=== PATIENT | female | born 1995 | race Caucasian/White ===

== ENCOUNTER → 2022-07-15 13:43 | Outpatient (CLI) | payer OTHER, SELFPAY ==
--- NOTE | 2022-07-15 13:48 | DI.US.S_ITS ---
PROCEDURE: US OB <= 14 WEEKS FETUS INDICATIONS: DATING AND VIABILITY OUTSIDE/PRIOR DATING DATA: Last menstrual period (LMP): 05/19/2022. LMP-based estimated date of delivery (SAMMIE): 02/23/2023. First dating scan (date and location): 07/15/2022. Estimated date of delivery (SAMMIE) from first dating scan: 02/22/2023. TECHNIQUE: Real-time scanning was performed of the fetus and maternal pelvic organs, with image documentation. COMPARISON: None. FINDINGS: Embryo: [place]-rump length measures 1.8 cm consistent with 8 weeks 2 days. heart rate is 175 beats per minute. Estimated gestational age is 8 weeks 1 day by LMP and 8 weeks 2 days by ultrasound. A perigestational bleed measuring 2.5 x 1.2 x 1.5 cm is noted on the left. IMPRESSION: 1. Single live intrauterine approximately 8 weeks 2 days. 2. Perigestational bleed measuring 2.5 x 1.2 x 0.5 cm. We strive to produce accurate, complete, and clear reports of imaging services. To assist us in improving patient care, this report was composed using standard report templates and voice recognition software. Therefore, it may contain abnormal punctuation, insertions and/or omissions. Occasional wrong-word or sound-alike substitutions may occur. Though we review the report and make efforts to correct it, we do recommend that the report be read carefully in proper context to recognize any text inaccuracies. Dictated by: Navdeep Mejia M.D. on 07/15/2022 at 16:04 Approved by: Navdeep Mejia M.D. on 07/15/2022 at 16:07
== END ==
PROVIDERS: Referring Provider Obstetrics & Gynecology; Visit Provider Obstetrics & Gynecology
DX: O46.8X1 Other antepartum hemorrhage, first trimester (principal); Z3A.08 8 weeks gestation of pregnancy
CPT/HCPCS: 76801; 76817

== ENCOUNTER 2022-07-16 10:10 | Emergency (ER) | payer OTHER, SELFPAY ==
[2022-07-16 10:13] VITALS: BP 137/87; PULSE 101; RESP 14; TEMP 36.9; O2SAT 99; BMI 31.6
--- NOTE | 2022-07-16 10:31 | ED_ITS ---
HPI - Skin/Abscess/Foreign Bdy General Chief complaint: Skin/Abscess/Foreign Body Stated complaint: Infection in piercing site Time Seen by Provider: 07/16/22 10:28 Source: patient Mode of arrival: Ambulatory Limitations: no limitations History of Present Illness HPI narrative: 27-year-old female who many months ago had both nipples pierced. She recently found out she was . She states that made her nipple start to become very sore so she took the piercings out. This is about 1 week ago. Over the past couple days she has had green drainage from both the nipples and from the piercing sites. Related Data Home Medications Medication Instructions Recorded Confirmed prenat.vits,sherry,[id number] 1 tab PO DAILY 07/08/22 07/08/22 Previous Rx's Medication Instructions Recorded cephalexin 500 mg capsule 500 mg PO QID 5 days #20 caps 07/16/22 Allergies Allergy/AdvReac Type Severity Reaction Status Date / Time No Known Drug Allergies Allergy Verified 07/16/22 10:18 Review of Systems Constitutional Constitutional: Reports system reviewed and no additional complaints, except as documented Integumentary/Breasts Skin/Breast: Reports system reviewed and no additional complaints, except as documented Hematologic/Lymphatic On Anticoagulants: No Allergic/Immunologic Allergic/Immunologic: Reports system reviewed and no additional complaints, except as documented Patient History Medical History Rosacea Surgical History (Updated 07/08/22 @ 08:37 by Concepcion Lassiter RN) [place] teeth extracted Family History (Updated 07/08/22 @ 08:40 by Concepcion Lassiter RN) Mother Breast cancer Father No problems noted. 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 ) special chace needs: No travel history: over 6 months ago seatbelt use: always water heater temp set < 120 deg: Yes working smoke detector in home: Yes fire extinguisher in home: Yes carbon monox detector in home: Yes firearms in home: No do you feel safe at home: Yes Smoking Status: Former smoker Tobacco: How many years used: 2 second hand exposure: No alcohol intake: former (4-6/week prior to ) substance use type: does not use during the past year weight has: increased > 10 lbs well-balanced diet: rarely or never daily servings fruits/ve-1 Type(s) of exercise: walking, regular exercise and weight lifting frequency: 3-4 times per week Smoking Status: Former smoker alcohol intake frequency: holidays/special occasions only Substance Use Type: does not use Exam Initial Vital Signs Initial Vital Signs: Vital Signs Temperature 98.4 F 07/16/22 10:13 Pulse Rate 101 H 07/16/22 10:13 Respiratory Rate 14 07/16/22 10:13 Blood Pressure 137/87 07/16/22 10:13 Pulse Oximetry 99 07/16/22 10:13 Oxygen Delivery Method 07/16/22 10:13 HENVA Head: normal to inspection and normocephalic Chest Other: With standby at bedside breast exam was performed. There is minimal surrounding erythema. No abscess felt underneath each nipple. There is a small amount of drainage from the piercing sites. Skin Other: Skin around nipples is very mildly erythematous. Neuro General: patient alert, patient awake and moves all extremities Extrem General: normal to inspection and capillary refill normal Course Vital Signs Vital signs: Vital Signs - 8 hr 07/16/22 10:13 Temperature 98.4 F Pulse Rate 101 H Respiratory Rate 14 Blood Pressure 137/87 Pulse Oximetry 99 Oxygen Delivery Method Room Air MDM - Skin/Abscess/Foreign Bdy MDM Narrative Medical decision making narrative: Patient is . Will start the patient on antibiotics. They were sent to the pharmacy of her choice. She was given return precautions. No indication for incision and drainage. She expressed understanding and agreement. Discharge Plan Departure Patient Disposition: Home Clinical Impression: Cellulitis Instructions: DI for Cellulitis -- Adult Activity Restrictions/Additional Instructions: A prescription for antibiotics was sent to the [facility]. Please start taking it as directed. They are considered safe antibiotics for . Contact your medical department for follow-up. Return to the emergency department for any new or worsening symptoms. Prescriptions: New cephalexin 500 mg capsule 500 mg PO QID 5 Days Qty: 20 0RF No Action prenat.vits,sherry,[id number] Tablet 1 tab PO DAILY Referrals: Provider,Radha MATTSON [Primary Care Provider] -
== END 2022-07-16 10:48 | disposition home or self-care (01) ==
PROVIDERS: Emergency Provider Emergency Medicine
DX: N61.0 Mastitis without abscess (principal)
CPT/HCPCS: 99281

== ENCOUNTER → 2022-08-14 14:36 | Outpatient (CLI) | payer OTHER, SELFPAY ==
[2022-08-14 15:37] LABS: Add Manual Diff / Slide Review NO; Basophils Absolute Auto 0 /uL (0-100); Basophils Percent Auto 0.3 % (0-2); Eosinophils Absolute Auto 100 /uL (0-450); Eosinophils Percent Auto 0.7 % (2-4); Lymphocytes Absolute Auto 1900 /uL (1100-4500); Lymphocytes Percent Auto 14.2 % (25-40); Mean Corpuscular Hemoglobin 31.2 PG (26-34); Mean Corpuscular Volume 89.1 fL (80-100); Monocytes Absolute Auto 800 /uL (0-900); Monocytes Percent Auto 5.7 % (3-14); Neutrophils Absolute Auto 10600 /uL (1500-7000); Neutrophils Percent Auto 79.1 % (50-75); Platelet Count 242 X10^3/uL (150-400); Red Blood Cell Count 4.49 X10^6/uL (4.0-5.2); Red Cell Distribution Width 12.7 % (11.6-14.8); White Blood Cell Count 13.4 X10^3/uL (4.5-11.0)
[2022-08-14 16:07] LABS: Bilirubin Urine UA NEGATIVE (NEGATIVE); Color Urine UA YELLOW; Glucose Urine UA NEGATIVE (Negative); Ketones Urine UA 1+ (NEGATIVE); Leukocyte Esterase Urine UA 1+ (NEGATIVE); Nitrite Urine UA NEGATIVE (Negative); Occult Blood Urine UA TRACE-LYSED (Negative); Protein Urine UA TRACE (Negative); Specific Gravity Urine UA 1.025 (1.000-1.035); Urobilinogen Urine UA 0.2 E.U./dL (0.2)
[2022-08-14 16:17] LABS: Appearance Urine UA Slightly Cloudy; pH Urine UA 5.5 (4.5-8.0)
[2022-08-14 16:21] LABS: Amorphous Sediment Urine 1+; Bacteria Urine Few (2-10); Calcium Oxalate Crystals Urine Moderate; Mucus Urine 1+ (Negative); RBC Urine 0-1/HPF (0-5/HPF); Squamous Epithelial Cell Urine 5-10 /HPF (0-5/HPF); WBC Urine 1-5/HPF (0-5/HPF)
[2022-08-15 07:36] LABS: Varicella IgG Antibody 1712 index (Immune >165)
[2022-08-17 15:11] LABS: Hepatitis B Surface Antigen NEGATIVE s/c (NEGATIVE); Rubella Antibody IgG 33.4 IU/mL (>15)
[2022-08-17 15:35] LABS: HIV 1 & 2 Ab/Ag 4th Gen Combo NEGATIVE (NEGATIVE); Hep C Virus Ab w/Reflex Quant NEGATIVE s/c (NEGATIVE)
[2022-09-01 13:48] LABS: RPR Screen Reactive
== END ==
PROVIDERS: Referring Provider Obstetrics & Gynecology; Visit Provider Obstetrics & Gynecology
DX: Z34.01 Encounter for supervision of normal first pregnancy, first trimester (principal)
CPT/HCPCS: 36415; 80055; 81003; 81015; 86787; 86803; 86850; 86900; 86901; 87086; 87389

== ENCOUNTER → 2022-09-11 15:11 | Outpatient (CLI) | payer OTHER, SELFPAY ==
[2022-09-15 20:46] LABS: AFP, Serum 37.9 ng/mL (.); Estriol, Free 1.28 ng/mL (.); Inhibin A, Dimeric 152.08 pg/mL (.); Inhibin A, MoM 1.13 (.); Maternal Ethnicity Caucasian (.); Maternal Weight 196 lbs (.); Number of Fetuses No (.); OSBR Risk 1 IN 6301 (.); Results Report (.); Test Results *Screen Negative* (.); hCG, MoM 0.84 (.); hCG, Serum 28303 mIU/mL (.)
== END ==
PROVIDERS: Referring Provider Obstetrics & Gynecology; Visit Provider Obstetrics & Gynecology
DX: Z34.02 Encounter for supervision of normal first pregnancy, second trimester (principal); Z3A.16 16 weeks gestation of pregnancy
CPT/HCPCS: 36415; 82105; 82677; 84702; 86336

== ENCOUNTER → 2022-10-06 14:07 | Outpatient (CLI) | payer OTHER, SELFPAY ==
[2022-10-06 19:49] LABS: Creatinine Urine Random 272.1 mg/dL
[2022-10-06 19:50] LABS: Protein (Total) Urine Random < 5 mg/dL (0-12); Protein Creatinine Ratio Urine 0.01 GRAM/24H
[2022-10-06 20:59] LABS: Urine N gonorrhoeae NOT DETECTED
[2022-10-06 21:02] LABS: Urine Chlamydia NOT DETECTED
== END ==
PROVIDERS: Visit Provider Obstetrics & Gynecology
DX: O12.10 Gestational proteinuria, unspecified trimester (principal); Z11.3 Encounter for screening for infections with a predominantly sexual mode of transmission; Z3A.20 20 weeks gestation of pregnancy
CPT/HCPCS: 82570; 84156; 87491; 87591

== ENCOUNTER → 2022-10-12 07:36 | Outpatient (CLI) | payer OTHER, SELFPAY ==
--- NOTE | 2022-10-12 07:37 | DI.US.S_ITS ---
PROCEDURE: US OB >= 14 WEEKS FETUS INDICATIONS: ANATOMY OUTSIDE/PRIOR DATING DATA: Last menstrual period (LMP): 05/19/2022 LMP-based estimated date of delivery (SAMMIE): 02/23/2023 First dating scan (date and location): 07/15/2022 Estimated date of delivery (SAMMIE) from first dating scan: 02/22/2023 The calculations are made using the working SAMMIE of 02/23/2023 TECHNIQUE: Real-time scanning was performed of the fetus, with image documentation and biometric measurements. Endovaginal scanning: Not performed COMPARISON: [facility], OB <= 14 WEEKS FETUS, 07/15/2022, 14:58. FINDINGS: General: A single living intrauterine gestation is present. Presentation: Breech Placenta: Placental position is right posterior fundal, without previa. Amniotic fluid index: 20.2 cm, normal range is 5-24 cm. Single deepest vertical pocket is 5.8 cm. heart rate: 150 beats per minute. Maternal cervical canal: 5.1 cm long. Normal lower limit is 2.5 cm. biometrics: Biparietal diameter: 5.4 cm, 22 weeks 3 days Head circumference: 19.0 cm, 21 weeks 2 days Abdominal circumference: 18.2 cm, 23 weeks 0 days Femur length: 3.5 cm, 21 weeks 1 day Clinically estimated gestational age: 20 weeks 6 days Composite gestational age from present scan: 22 weeks 0 days Estimated weight and percentile: 478 g, 96th percentile for gestational age Anatomic survey: Neuro: Ventricles are non-dilated at less than 10 mm. Cisterna magna is normal at 3-11 mm. Cerebellum is normal in size and morphology. Nuchal skin fold: Normal at less than 6 mm between 14-21 weeks gestational age. Face: Nose and lips, facial profile are normal. Spine: No evidence for spina bifida. Heart: 4-chambered heart is present, with normal ventricular outflow tracts. Diaphragm: Diaphragm is intact. Stomach: Left-sided stomach is present. Kidneys: Bilateral renal pelviectasis. Anterior-posterior dimension of the renal pelvis measures 4 mm at the right kidney and 7 mm of the left kidney. Cord: 3-vessel cord. Umbilical cord appears to insert along the inferior margin of the placenta, but is not well evaluated due to positioning. Bladder: Normal in size. Extremities: All 4 extremities identified. IMPRESSION: 1. Single live intrauterine . 2. Estimated weight is 478 g, 96th percentile for clinical gestational age and macrosomia is not excluded. 3. Bilateral renal pelviectasis measuring 4 mm on the right and 7 mm on the left. Recommend attention on follow-up exams. 4. Possible marginal insertion of the umbilical cord onto the placenta at the inferior placenta, although evaluation is suboptimal due to positioning. Recommend attention on follow-up exam to exclude marginal cord insertion. We strive to produce accurate, complete, and clear reports of imaging services. To assist us in improving patient care, this report was composed using standard report templates and voice recognition software. Therefore, it may contain abnormal punctuation, insertions and/or omissions. Occasional wrong-word or sound-alike substitutions may occur. Though we review the report and make efforts to correct it, we do recommend that the report be read carefully in proper context to recognize any text inaccuracies Approved by: Oneal Reyes M.D. on 10/12/2022 at 12:18 .
== END ==
PROVIDERS: Referring Provider Obstetrics & Gynecology; Visit Provider Obstetrics & Gynecology
DX: Z34.02 Encounter for supervision of normal first pregnancy, second trimester (principal); Z3A.22 22 weeks gestation of pregnancy
CPT/HCPCS: 76811

== ENCOUNTER → 2022-11-20 11:29 | Outpatient (CLI) | payer OTHER, SELFPAY ==
[2022-11-20 13:03] LABS: Hematocrit 36.2 % (36-46); Hemoglobin 12.4 g/dL (12.0-16.0)
[2022-11-20 13:13] LABS: GTT (PREG) 1 Hour PP 50gm Dose 110 mg/dL (76-139)
== END ==
PROVIDERS: Referring Provider Obstetrics & Gynecology; Visit Provider Obstetrics & Gynecology
DX: Z34.02 Encounter for supervision of normal first pregnancy, second trimester (principal); Z3A.26 26 weeks gestation of pregnancy
CPT/HCPCS: 36415; 82950; 85014; 85018

== ENCOUNTER → 2022-12-01 14:02 | Outpatient (CLI) | payer OTHER, SELFPAY | PROVIDERS: Visit Provider Obstetrics & Gynecology | DX: Z34.03 Encounter for supervision of normal first pregnancy, third trimester (principal); R31.9 Hematuria, unspecified | CPT/HCPCS: 87086 ==

== ENCOUNTER → 2022-12-04 14:27 | Outpatient (CLI) | payer OTHER, SELFPAY | PROVIDERS: Referring Provider Obstetrics & Gynecology; Visit Provider Obstetrics & Gynecology | DX: N39.0 Urinary tract infection, site not specified (principal) | CPT/HCPCS: 87086 ==

== ENCOUNTER → 2022-12-08 15:09 | Outpatient (CLI) | payer OTHER, SELFPAY ==
--- NOTE | 2022-12-08 15:10 | DI.US.S_ITS ---
PROCEDURE: US OB FOLLOW UP INDICATIONS: LARGE FOR GESTATIONAL AGE. PLACENTAL CORD INSERTION F/U. OUTSIDE/PRIOR DATING DATA: Last menstrual period (LMP): 05/19/2022 LMP-based estimated date of delivery (SAMMIE): 02/23/2023. First dating scan (date and location): 07/15/2022. Estimated date of delivery (SAMMIE) from first dating scan: 02/22/2023. TECHNIQUE: Real-time scanning was performed of the fetus, with image documentation and biometric measurements. COMPARISON: [facility], , OB >= 14 WEEKS FETUS, 10/12/2022, 7:54. FINDINGS: General: A single living intrauterine gestation is present. Presentation: Vertex. Placenta: Placental position is right fundal posterior , without previa. Amniotic fluid index: 24.9 cm, normal range is 5-24 cm. Single deepest vertical pocket is 9.0 cm cm. heart rate: Heart tones seen with real-time exam; however M-mode tracing was unable to be obtained secondary to movement. Maternal cervical canal: 6.1 cm cm long. Normal lower limit is 2.5 cm. biometrics: Biparietal diameter: 33 weeks Head circumference: 31 weeks 4 days Abdominal circumference: 32 weeks Femur length: 29 weeks 6 days Clinically estimated gestational age: 29 weeks Composite gestational age from present scan: 31 weeks 4 days Estimated weight and percentile: 1753 g; 98th percentile Renal pyelectasis with the right kidney reds ring 6.3 mm and the left renal pelvis measuring 7.2 mm. Marginal placenta previa at the inferior margin of the placenta. Other: Not applicable. IMPRESSION: 1. Single living IUP redemonstrated and interval growth is greater than expected with estimated weight at the 98th percentile. Developing macrosomia cannot be excluded and close clinical correlation and follow-up is recommended. 2. Amniotic fluid index greater than the 95th percentile for age. 3. Marginal placenta previa. 4. Persistent bilateral renal pyelectasis. Continued sonographic surveillance recommended. We strive to produce accurate, complete, and clear reports of imaging services. To assist us in improving patient care, this report was composed using standard report templates and voice recognition software. Therefore, it may contain abnormal punctuation, insertions and/or omissions. Occasional wrong-word or sound-alike substitutions may occur. Though we review the report and make efforts to correct it, we do recommend that the report be read carefully in proper context to recognize any text inaccuracies. Dictated by: James WILLIAMSON Interpreted: Oneal Frost MD on 12/09/2022 at 16:43 Transcribed by: GABRIEL on 12/09/2022 at 16:49 Approved by: Oneal Frost M.D. on 12/09/2022 at 17:45
== END ==
PROVIDERS: Referring Provider Obstetrics & Gynecology; Visit Provider Obstetrics & Gynecology
DX: O36.63X0 Maternal care for excessive fetal growth, third trimester, not applicable or unspecified (principal); O35.EXX0 Maternal care for other (suspected) fetal abnormality and damage, fetal genitourinary anomalies, not applicable or unspecified; Z3A.31 31 weeks gestation of pregnancy; O43.193 Other malformation of placenta, third trimester
CPT/HCPCS: 76816

== ENCOUNTER → 2022-12-30 15:17 | Outpatient (CLI) | payer OTHER, SELFPAY ==
[2022-12-30 19:01] LABS: Urine N gonorrhoeae NOT DETECTED
[2022-12-30 19:02] LABS: Urine Chlamydia NOT DETECTED
== END ==
PROVIDERS: Visit Provider Obstetrics & Gynecology
DX: O26.899 Other specified pregnancy related conditions, unspecified trimester (principal); N89.8 Other specified noninflammatory disorders of vagina; Z11.3 Encounter for screening for infections with a predominantly sexual mode of transmission
CPT/HCPCS: 87491; 87591

== ENCOUNTER → 2022-12-30 15:32 | Outpatient (CLI) | payer OTHER, SELFPAY ==
[2022-12-30 16:08] LABS: Add Manual Diff / Slide Review NO; Basophils Absolute Auto 100 /uL (0-100); Basophils Percent Auto 0.4 % (0-2); Eosinophils Absolute Auto 100 /uL (0-450); Eosinophils Percent Auto 0.5 % (2-4); Hemoglobin 12.4 g/dL (12.0-16.0); Lymphocytes Absolute Auto 1900 /uL (1100-4500); Lymphocytes Percent Auto 12.3 % (25-40); Mean Corpuscular HGB Conc 34.4 % (30-36); Mean Corpuscular Hemoglobin 30.3 PG (26-34); Mean Corpuscular Volume 88.3 fL (80-100); Monocytes Absolute Auto 900 /uL (0-900); Neutrophils Absolute Auto 12400 /uL (1500-7000); Neutrophils Percent Auto 80.8 % (50-75); Platelet Count 197 X10^3/uL (150-400); Red Blood Cell Count 4.08 X10^6/uL (4.0-5.2); Red Cell Distribution Width 13.7 % (11.6-14.8); White Blood Cell Count 15.3 X10^3/uL (4.5-11.0)
[2022-12-30 16:18] LABS: Alanine Aminotransferase 20 IU/L (<35); Albumin 3.8 g/dL (3.5-5.0); Albumin Globulin Ratio 1.3 (1.0-2.8); Alkaline Phosphatase 93 U/L (38-126); Aspartate Aminotransferase 23 IU/L (14-36); Bilirubin Total 0.2 mg/dL (0.2-1.3); Blood Urea Nitrogen 12 mg/dL (7-17); Calcium 9.8 mg/dL (8.4-10.2); Carbon Dioxide 24 mmol/L (22-32); Chloride 103 mmol/L (98-107); Estimated Glomerular Filt Rate > 60 mL/min (>60); Globulin 2.9 g/dL (1.7-4.1); Glucose 108 mg/dL (70-100); HEMOLYSIS 17 (0-50); Sodium 134 mmol/L (137-145); Total Protein 6.7 g/dL (6.3-8.2); Uric Acid 4.7 mg/dL (2.5-6.2)
[2022-12-30 18:03] LABS: Creatinine Urine Random 128.4 mg/dL; Protein (Total) Urine Random 11 mg/dL (0-12); Protein Creatinine Ratio Urine 0.08 GRAM/24H
== END ==
PROVIDERS: Referring Provider Obstetrics & Gynecology; Visit Provider Obstetrics & Gynecology
DX: O13.3 Gestational [pregnancy-induced] hypertension without significant proteinuria, third trimester (principal)
CPT/HCPCS: 36415; 80053; 82570; 84156; 84550; 85025

== ENCOUNTER 2022-12-30 15:57 | Outpatient (CLI) | payer OTHER, SELFPAY | END 2022-12-30 16:35 | disposition home or self-care (01) | LOC: LABOR 16:30 → OB 12-31 16:55 | PROVIDERS: PCP Student in an Organized Health Care Education/Training Program; Referring Provider Obstetrics & Gynecology; Visit Provider Obstetrics & Gynecology | DX: O36.8130 Decreased fetal movements, third trimester, not applicable or unspecified (principal); O10.913 Unspecified pre-existing hypertension complicating pregnancy, third trimester; Z3A.32 32 weeks gestation of pregnancy; O26.899 Other specified pregnancy related conditions, unspecified trimester; N89.8 Other specified noninflammatory disorders of vagina; Z11.3 Encounter for screening for infections with a predominantly sexual mode of transmission; O13.3 Gestational [pregnancy-induced] hypertension without significant proteinuria, third trimester | CPT/HCPCS: 36415; 59025; 80053; 82570; 84156; 84550; 85025; 87491; 87591; G0378; G0379 ==

== ENCOUNTER 2023-01-20 10:44 | Observation (INO) | payer OTHER, SELFPAY ==
[2023-01-20 11:42] LABS: Appearance Urine UA CLEAR; Bilirubin Urine UA NEGATIVE (NEGATIVE); Color Urine UA YELLOW; Glucose Urine UA NEGATIVE (Negative); Ketones Urine UA TRACE (NEGATIVE); Leukocyte Esterase Urine UA 1+ (NEGATIVE); Nitrite Urine UA NEGATIVE (Negative); Occult Blood Urine UA NEGATIVE (Negative); Protein Urine UA NEGATIVE (Negative); Urobilinogen Urine UA 0.2 E.U./dL (0.2); pH Urine UA 6.5 (4.5-8.0)
[2023-01-20 11:51] LABS: Bacteria Urine None Seen; Culture Indicated Urine Specimen Cultured; RBC Urine None Seen (0-5/HPF); Urine Comments Microscopic Normal; WBC Urine None Seen (0-5/HPF)
--- NOTE | 2023-01-20 11:56 | DI.US.S_ITS ---
PROCEDURE: US OB BIOPHYSICAL PROFILE INDICATIONS: 35 weeks, cramping OUTSIDE/PRIOR DATING DATA: Last menstrual period (LMP): May 19, 2022. LMP-based estimated date of delivery (SAMMIE): February 23, 2023. First dating scan (date and location): July 15, 2022. Estimated date of delivery (SAMMIE) from first dating scan: February 22, 2023. TECHNIQUE: Real-time scanning was performed of the fetus, with image documentation and biometric measurements. Biophysical profile was also obtained. Endovaginal scanning: Not performed COMPARISON: None. FINDINGS: General: A single living intrauterine gestation is present. Presentation: Vertex. Placenta: Placental position is fundal/posterior, without previa. Lower placental edge 2 cm or less from internal cervical os qualifies as low lying placenta. Amniotic fluid index: 12.7 cm, normal range is 5-24 cm. Single deepest vertical pocket is 4.3 cm. heart rate: 132 beats per minute. Maternal cervical canal: 3.9 cm long. Normal lower limit is 2.5 cm. Clinically estimated gestational age: 35 weeks, 1 day Biophysical profile: Tone: 2 points. Movement: 2 points. Respiration: 2 points. Largest pocket of fluid: 2 points. IMPRESSION: 8 biophysical profile. We strive to produce accurate, complete, and clear reports of imaging services. To assist us in improving patient care, this report was composed using standard report templates and voice recognition software. Therefore, it may contain abnormal punctuation, insertions and/or omissions. Occasional wrong-word or sound-alike substitutions may occur. Though we review the report and make efforts to correct it, we do recommend that the report be read carefully in proper context to recognize any text inaccuracies. Dictated by: Celsa Benitez M.D. on 01/20/2023 at 14:05 Approved by: Celsa Benitez M.D. on 01/20/2023 at 14:27
--- NOTE | 2023-01-20 12:47 | PM.OBTRLD ---
Visit Information Visit Information Date of evaluation: 01/20/23 Primary OB Provider: Aguila Yoo Reason for Evaluation: Yes non-stress test Comments/Additional reasons for admission: Decreased FM, contractions PFSH Medical History (Updated 01/20/23 @ 12:48 by Aguila Yoo MD) Rosacea (~1994) Surgical History (Updated 08/14/22 @ 18:58 by Claribel Acosta) Anesthesia [place] teeth extracted (~2010) Family History (Updated 08/14/22 @ 19:00 by Claribel Acosta) Mother Breast cancer Father History of blood clots Grandfather Prostate cancer Testicular cancer Grandmother Hyperlipidemia Hypertension Grandmother Diabetes mellitus Social History marital status: number of children: 0 household members: none lives independently: Yes housing: apartment pets and animals: No education level: high school 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 travel history: over 6 months ago seatbelt use: always water heater temp set < 120 deg: Yes working smoke detector in home: Yes fire extinguisher in home: Yes carbon monox detector in home: Yes firearms in home: No do you feel safe at home: Yes Smoking Status: Former smoker Tobacco: How many years used: 2 second hand exposure: No alcohol intake: former (4-6/week prior to ) substance use type: does not use during the past year weight has: increased > 10 lbs well-balanced diet: rarely or never daily servings fruits/ve-1 Type(s) of exercise: walking, regular exercise and weight lifting frequency: 3-4 times per week Objective Labs Labs: Laboratory Results - last 24 hr 01/20/23 11:25 Urine Color Yellow Urine Appearance Clear Urine pH 6.5 Ur Specific [place] 1.020 Urine Protein Negative Urine Glucose (UA) Negative Urine Ketones Trace H Urine Occult Blood Negative Urine Nitrate Negative Urine Bilirubin Negative Urine Urobilinogen 0.2 Ur Leukocyte Esterase 1+ H Urine RBC None seen Urine WBC None seen Urine Bacteria None seen Ur Culture Indicated? Specimen cultured Micro UA Comment Microscopic normal Evaluation Evaluation Baseline heart rate: 130 Variability: Moderate (11-25) monitor accelerations: Present Monitor Decelerations: Absent Contraction Frequency (minutes): 4 Uterine Contraction Intensity: Mild Category of Tracing: Reactive Status: Category l Cervical dilation (cm): 1 Cervical effacement (%): 50 station: -3 Comments: BPP /, BEAN NL. Diagnosis, Plan/Disposition Final Diagnosis (1) Uterine irritability: Status: Acute (2) Decreased movement affecting management of mother, antepartum: Status: Acute Plan/Disposition Plan: Home with precautions. BR and adequate hydration, kick counts. Follow-up BELLA scheduled for next week (01/29/2023). OB Disposition: home
== END 2023-01-20 12:56 | disposition home or self-care (01) ==
PROVIDERS: Admitting Provider Obstetrics & Gynecology; PCP Student in an Organized Health Care Education/Training Program; Referring Provider Obstetrics & Gynecology; Visit Provider Obstetrics & Gynecology
DX: O47.03 False labor before 37 completed weeks of gestation, third trimester (principal); O36.8130 Decreased fetal movements, third trimester, not applicable or unspecified; Z3A.35 35 weeks gestation of pregnancy
CPT/HCPCS: 59025; 76819; 81001; 87086; G0378; G0379

== ENCOUNTER → 2023-01-29 14:42 | Outpatient (CLI) | payer OTHER, SELFPAY ==
[2023-01-30 12:34] LABS: Strep Grp B PCR NEG for Grp B Strep
== END ==
PROVIDERS: PCP Student in an Organized Health Care Education/Training Program; Visit Provider Obstetrics & Gynecology
DX: Z34.03 Encounter for supervision of normal first pregnancy, third trimester (principal); Z3A.36 36 weeks gestation of pregnancy
CPT/HCPCS: 87653

== ENCOUNTER → 2023-01-29 15:08 | Outpatient (CLI) | payer OTHER, SELFPAY ==
[2023-01-29 15:29] LABS: Add Manual Diff / Slide Review NO; Basophils Absolute Auto 100 /uL (0-100); Basophils Percent Auto 0.4 % (0-2); Eosinophils Absolute Auto 100 /uL (0-450); Eosinophils Percent Auto 0.6 % (2-4); Hematocrit 35.5 % (36-46); Hemoglobin 12.3 g/dL (12.0-16.0); Lymphocytes Absolute Auto 2100 /uL (1100-4500); Mean Corpuscular HGB Conc 34.6 % (30-36); Mean Corpuscular Hemoglobin 30.3 PG (26-34); Mean Corpuscular Volume 87.6 fL (80-100); Monocytes Absolute Auto 1000 /uL (0-900); Monocytes Percent Auto 6.4 % (3-14); Neutrophils Absolute Auto 12600 /uL (1500-7000); Neutrophils Percent Auto 79.6 % (50-75); Platelet Count 209 X10^3/uL (150-400); Red Blood Cell Count 4.05 X10^6/uL (4.0-5.2); Red Cell Distribution Width 14.1 % (11.6-14.8); White Blood Cell Count 15.9 X10^3/uL (4.5-11.0)
[2023-01-29 15:35] LABS: Alanine Aminotransferase 28 IU/L (<35); Albumin Globulin Ratio 1.3 (1.0-2.8); Alkaline Phosphatase 120 U/L (38-126); Aspartate Aminotransferase 25 IU/L (14-36); BUN Creatinine Ratio 8.5 (6-22); Bilirubin Total 0.4 mg/dL (0.2-1.3); Blood Urea Nitrogen 6 mg/dL (7-17); Calcium 9.5 mg/dL (8.4-10.2); Carbon Dioxide 20 mmol/L (22-32); Chloride 105 mmol/L (98-107); Estimated Glomerular Filt Rate > 60 mL/min (>60); Globulin 3.1 g/dL (1.7-4.1); Glucose 106 mg/dL (70-100); HEMOLYSIS < 15 (0-50); Potassium 3.7 mmol/L (3.4-5.1); Sodium 134 mmol/L (137-145); Total Protein 7.1 g/dL (6.3-8.2)
== END ==
PROVIDERS: Referring Provider Obstetrics & Gynecology; Visit Provider Obstetrics & Gynecology
DX: O13.3 Gestational [pregnancy-induced] hypertension without significant proteinuria, third trimester (principal)
CPT/HCPCS: 36415; 80053; 85025

== ENCOUNTER 2023-01-29 15:10 | Outpatient (CLI) | payer OTHER, SELFPAY | END 2023-01-29 16:15 | disposition home or self-care (01) | LOC: OB 02-22 13:02 | PROVIDERS: Referring Provider Obstetrics & Gynecology; Visit Provider Obstetrics & Gynecology | DX: O10.913 Unspecified pre-existing hypertension complicating pregnancy, third trimester (principal); Z3A.36 36 weeks gestation of pregnancy; Z34.03 Encounter for supervision of normal first pregnancy, third trimester; O13.3 Gestational [pregnancy-induced] hypertension without significant proteinuria, third trimester | CPT/HCPCS: 36415; 59025; 80053; 85025; 87653; G0378; G0379 ==

== ENCOUNTER 2023-02-03 10:04 | Outpatient (CLI) | payer OTHER, SELFPAY ==
--- NOTE | 2023-02-03 11:43 | P.TNLD_ITS ---
Visit Information Visit Information Date of evaluation: 02/03/23 Primary OB Provider: Aguila Yoo Reason for Evaluation: Yes non-stress test Comments/Additional reasons for admission: Gestational HTN PFSH Medical History (Updated 02/03/23 @ 10:07 by Aguila Yoo MD) Rosacea (~1994) Surgical History (Updated 08/14/22 @ 18:58 by Claribel Acosta) Anesthesia [place] teeth extracted (~2010) Family History (Updated 08/14/22 @ 19:00 by Claribel Acosta) Mother Breast cancer Father History of blood clots Grandfather Prostate cancer Testicular cancer Grandmother Hyperlipidemia Hypertension Grandmother Diabetes mellitus Social History marital status: number of children: 0 household members: none lives independently: Yes housing: apartment pets and animals: No education level: high school 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 travel history: over 6 months ago seatbelt use: always water heater temp set < 120 deg: Yes working smoke detector in home: Yes fire extinguisher in home: Yes carbon monox detector in home: Yes firearms in home: No do you feel safe at home: Yes Smoking Status: Former smoker Tobacco: How many years used: 2 second hand exposure: No alcohol intake: former (4-6/week prior to ) substance use type: does not use during the past year weight has: increased > 10 lbs well-balanced diet: rarely or never daily servings fruits/ve-1 Type(s) of exercise: walking, regular exercise and weight lifting frequency: 3-4 times per week Evaluation Evaluation Baseline heart rate: 145 Variability: Moderate (11-25) monitor accelerations: Present Monitor Decelerations: Absent Category of Tracing: Reactive Diagnosis, Plan/Disposition Final Diagnosis (1) Gestational hypertension w/o significant proteinuria in 3rd trimester: Status: Acute (2) LGA (large for gestational age) fetus affecting management of mother: Status: Acute Plan/Disposition Plan: Home with instructions Primary section as scheduled OB Disposition: home
== END 2023-02-03 11:35 | disposition home or self-care (01) ==
LOC: LABOR 10:56 → OB 02-05 14:26
PROVIDERS: Referring Provider Obstetrics & Gynecology; Visit Provider Obstetrics & Gynecology
DX: O13.3 Gestational [pregnancy-induced] hypertension without significant proteinuria, third trimester (principal); Z3A.37 37 weeks gestation of pregnancy
CPT/HCPCS: 59025; 76815; G0378; G0379

== ENCOUNTER 2023-02-08 05:33 | Inpatient (IN) | payer OTHER, SELFPAY ==
--- NOTE | 2023-02-07 21:21 | P.HPOB_ITS ---
OB HPI Date/Time Date of admission: 02/08/23 Date Patient Seen: 02/07/23 Time Patient Seen: 07:00 History of Present Condition Chief complaint: Elective Primary : 1 Para: 0 Estimated Date of Delivery: 02/22/23 Estimated Gestational Age (weeks): 38+0 Narrative: Cecile Lares is a 27 year old primigravida with gestational hypertension requiring labetalol 300 mg BID for control who is admitted for delivery. Her testing has been reassuring, her dating is firm, and she's had appropriate milestones throughout the pregnacy. The has also been LGA throughout the and the oatient has been concerned throughout the re: the size of the baby, the risks of labor to her and her , as well as the possibility that after unsuccessful labor she may wind up having a section anyway. The patient is aware that her most recent biometric imaging 12/08/2022 showed her baby is at the 98th %'tile insofar as EFW but she declines further growth imaging for confirmation prior to delivery as she does not wish to consider vaginal . After consideration of all options and with full understanding of potential risks, benefits, and complications associated with the patient is form in her desire rto [[id number] with elective proimary cesrean section and she is admitted this morning for delivery by cesrean section. GBS is negative. Indications Operative indications ( section): elective History of Present care: good care Dating criteria: LMP confirmed by 1st trimester US Ultrasounds: normal 1st trimester US and normal mid trimester US Abnormal ultrasound findings: Macrosomia Obstetrical complications: gestational hypertension Medical complications: none Preadmission Labs Blood type: O (+) positive -: Antibody screen: negative, GBS status: negative, HBsAG: negative, HIV: negative and RPR/VDLR: negative -: Chlamydia screen: not detected and Gonorrhea screen: not detected -: Rubella: immune and Varicella: immune HCT: 35.5 HCAB: negative PAP: Normal Quad screen: Normal 1 hr GTT: 110 Prior (ies) History: G1 Evaluation Evaluation Baseline heart rate: 135 Variability: Moderate (11-25) monitor accelerations: Present Monitor Decelerations: Absent Category of Tracing: Reactive Status: Category l [facility] Medical History (Updated 02/03/23 @ 10:07 by Aguila Yoo MD) Rosacea (~1994) Surgical History (Updated 08/14/22 @ 18:58 by Claribel Acosta) Anesthesia [place] teeth extracted (~2010) Family History (Updated 08/14/22 @ 19:00 by Claribel Acosta) Mother Breast cancer Father History of blood clots Grandfather Prostate cancer Testicular cancer Grandmother Hyperlipidemia Hypertension Grandmother Diabetes mellitus Social History marital status: number of children: 0 household members: none lives independently: Yes housing: apartment pets and animals: No education level: high school 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 ) special chace needs: No travel history: over 6 months ago seatbelt use: always water heater temp set < 120 deg: Yes working smoke detector in home: Yes fire extinguisher in home: Yes carbon monox detector in home: Yes firearms in home: No do you feel safe at home: Yes Smoking Status: Former smoker Tobacco: How many years used: 2 second hand exposure: No alcohol intake: former (4-6/week prior to ) substance use type: does not use during the past year weight has: increased > 10 lbs well-balanced diet: rarely or never daily servings fruits/ve-1 Type(s) of exercise: walking, regular exercise and weight lifting frequency: 3-4 times per week Meds Home Medications and Allergies Home Medications Medication Instructions Recorded Confirmed Type prenat.vits,sherry,osd-[id number]-pyjho 1 tab PO DAILY 07/08/22 02/03/23 History fluconazole 150 mg tablet 150 mg PO Q3D 2 doses #2 tabs 08/15/22 02/03/23 Rx (Diflucan) fluconazole 150 mg tablet 150 mg PO Q3D 2 doses #2 tabs 11/11/22 02/03/23 Rx (Diflucan) labetalol 300 mg tablet 300 mg PO BID #60 tabs 12/30/22 02/03/23 Rx metronidazole 0.75 % (37.5 mg/5 1 appful vaginal BEDTIME 5 days 12/30/22 02/03/23 Rx gram) vaginal gel #70 grams Allergies Allergy/AdvReac Type Severity Reaction Status Date / Time No Known Drug Allergies Allergy Verified 02/03/23 09:48 Review of Systems Review of Systems Narrative: Problem-specific ROS positives included in HPI OB Exam Vital signs Blood Pressure: 128/84 Pulse Rate: 90 Respiratory Rate: 17 Temperature: 97.9 F HENMT Head: normal to inspection and normocephalic Eyes General: appearance normal, both eyes and all related structures Resp Effort & Inspection: normal respiratory effort and able to speak in complete sentences Auscultation: clear to auscultation bilaterally Cardio Rate: regular rate Rhythm: regular rhythm Heart Sounds: S1 normal, S2 normal and no murmurs Extremities Lower extremity: Yes normal to inspection GI Inspection: normal to inspection Palpation: Yes soft and Yes no hepatosplenomegaly Uterus Location (Fundal Height): 38 Presentation: vertex Estimated Weight (lbs): 8 Objective Labs 02/08/23 06:00 Assessment and Plan Assessment and Plan Assessment and Plan narrative: ASSESSMENT 1. Intrauterine , 38+0 weeks EGA 2. Gestational HTN 3. Request for elective sterilization PLAN 1. Admit for primary delivery 2. See admission orders
[2023-02-08 06:46] LABS: Add Manual Diff / Slide Review NO; Basophils Absolute Auto 100 /uL (0-100); Basophils Percent Auto 0.8 % (0-2); Eosinophils Absolute Auto 100 /uL (0-450); Eosinophils Percent Auto 0.6 % (2-4); Hematocrit 37.3 % (36-46); Hemoglobin 12.8 g/dL (12.0-16.0); Lymphocytes Absolute Auto 2400 /uL (1100-4500); Lymphocytes Percent Auto 14.5 % (25-40); Mean Corpuscular HGB Conc 34.2 % (30-36); Mean Corpuscular Hemoglobin 29.9 PG (26-34); Mean Corpuscular Volume 87.6 fL (80-100); Monocytes Absolute Auto 1200 /uL (0-900); Monocytes Percent Auto 7.2 % (3-14); Neutrophils Absolute Auto 12600 /uL (1500-7000); Neutrophils Percent Auto 76.9 % (50-75); Platelet Count 208 X10^3/uL (150-400); Red Blood Cell Count 4.26 X10^6/uL (4.0-5.2); Red Cell Distribution Width 14.4 % (11.6-14.8); White Blood Cell Count 16.4 X10^3/uL (4.5-11.0)
[2023-02-08 07:37] VITALS: BP 128/84; PULSE 90; RESP 17; TEMP 36.6
--- NOTE | 2023-02-08 07:37 | PM.PREOP ---
Pre-operative Note COVID-19 COVID-19 status: Not tested Criteria for continued procedure: Non-surgical alternatives not available or appropriate per current SOC Interval Note History & Physical reviewed/Exam performed by Physician: Yes Changes to H&P: No
[2023-02-08] MEDS: CEFAZOLIN 2 GM/100 ML PREMIX 100 ML IV (08:10)
--- NOTE | 2023-02-08 08:14 | SUR.OPER ---
Supine on Padded OR bed, head on pillow, safety belt at thigh, arms secured on padded arm boards at <90 degrees abduction. Bump under right buttock. Legs uncrossed with pillow under knees, gel pad to heels, tape over blanket to lower legs.
[2023-02-08] MEDS: LACTATED RINGERS 1,000 ML 999 ML IV (08:25)
--- NOTE | 2023-02-08 08:28 | SUR.OPER ---
FHR 144. Viable baby boy born at 0821. Cord blood and placenta given to OB RN.
[2023-02-08 09:18] VITALS: BP 114/74; PULSE 85; RESP 10; TEMP 35.8; O2SAT 100
[2023-02-08 09:22] VITALS: BP 118/72; PULSE 86; RESP 18; O2SAT 100
[2023-02-08] MEDS: OXYCODONE/ACETAMINOPHEN 5/325 TABLET 1 TAB PO (09:27)
--- NOTE | 2023-02-08 09:30 | PM.OBCS.1 ---
Operative Date/Time/Diagnoses Date of procedure: 02/08/23 Time of procedure: 08:00 Pre-op diagnosis: Intrauterine gestation, west, 38+0 weeks EGA Gestational hypertension Request for elective primary cesareean section Post-op diagnosis: same Procedure & Clinicians Procedure: Primary section, low transverse cervical Same procedure as scheduled: Yes Indications: Cecile Lares is a 27 year old primigravida with gestational hypertension requiring labetalol 300 mg BID for control who is admitted for delivery.? Her testing has been reassuring, her dating is firm, and she's had appropriate milestones throughout the pregnacy.? The has also been LGA throughout the and the patient has been concerned throughout the re: the size of the baby, the risks of labor to her and her , as well as the possibility that after unsuccessful labor she may wind up having a section anyway.? The patient is aware that her most recent biometric imaging 12/08/2022 showed her baby is at the 98th %'tile insofar as EFW but she declines further growth imaging for confirmation prior to delivery as she does not wish to consider vaginal .? After consideration of all options and with full understanding of potential risks, benefits, and complications associated with the patient is form in her desire to proceed with elective primary section and she is admitted this morning for delivery by section.? GBS is negative. Surgeon: Aguila Yoo Evidence Technician: Pilar Best Reason for Evidence Technician: Evidence Technician required for the safe, effective, and timely completion of this surgery. Anesthesia Type: Spinal Operative Notes Findings: Viable male BW 3925 gms, Apgars 4/6/8, delivered from the vertex presentation. Normal gravid anatomy. Closure Type: primary Specimen(s): cord blood and cord pH Intraoperative meds administered: Ketorolac and Pitocin Applied: Catheter Estimated Blood Loss (mL): 600 Blood products transfused: none Procedure in detail: With her informed written consent, the patient was taken to the operating room and placed in the supine position for an elective primary section procedure, for the indication(s) above. The abdomen was prepped and draped in the usual manner for section and a pre-surgical timeout was taken per [facility] OR protocol. Once effective anesthesia was confirmed, a 15 cm transverse Pfannenstiel incision was made in the skin and taken down through the subcutaneous tissues to the deep fascia. The deep fascia was incised transversely, the rectus abdominal eyes bluntly and sharply, and the peritoneal cavity entered without difficulty. The lower uterine segment was visualized and the position/presentation palpated. A transverse incision at or above the vesicouterine reflection was made with Metzenbaum scissors and transverse hysterotomy performed near the midline. Amniotomy revealed clear fluid. The incision was extended bilaterally with digital traction and the was delivered with vacuum assistance from the vertex presentation. The infant was vigorous and cord clamping delayed for 60 seconds. The placenta was delivered intact using gentle cord traction and fundal massage.The uterine cavity was then cleared of any clot/debris first with a sloppy wet lap tape followed by a dry lap tape. Ring forceps were then applied to the angles and the midline of the incised SHILA. A primary closure of the uterus was then accomplished with #1 CCGS in a running interlocking stitch followed by a 2nd layer of #1 CCGS in a running interlocking imbricating stitch. One additional figure of eight suture was required to achieve complete hemostasis. Once pelvic hemostasis was assured, the bladder flap and anterior peritoneum were closed with a running 2-0 Vicryl suture and the fascia closed with #1 Vicryl in a running stitch initiated at both angles and tying separately near the midline. The subcutaneous tissues were reapproximated with 2-0 plain catgut suture using inverted interrupted stitches. The skin edges were then brought together with 4-0 Monocryl in a subcuticular closure and the incision was reinforced with 1 Steri-Strips. An appropriate compression dressing was applied and the patient transferred to PACU for recovery and subsequent transfer to the Center for recuperation. Complications: none [place] Baby 1: Gender: Male Presentation: vertex Position: Left Occiput Anterior Placental Delivery Description: Spontaneous Cord Vessel Description: 3 Vessels score (1 min): 4 score (5 min): 6 score (10 min): 8 weight: 8 lb 10.45 oz Post-operative Condition: stable Disposition: PACU Aftercare: routine postop
[2023-02-08 09:31] VITALS: BP 125/72; PULSE 87; RESP 18; O2SAT 100
[2023-02-08 09:37] VITALS: BP 111/65; PULSE 76; RESP 18; O2SAT 100
[2023-02-08] MEDS: TRANEXAMIC ACID 1,000 MG in SODIUM CHLORIDE 0.9% 100 ML 200 MG IV (11:06)
[2023-02-08] MEDS: METHYLERGONOVINE 0.2 MG/ML VIAL IM (11:07)
[2023-02-08 12:22] LABS: Add Manual Diff / Slide Review NO; Basophils Absolute Auto 100 /uL (0-100); Basophils Percent Auto 0.4 % (0-2); Eosinophils Absolute Auto 100 /uL (0-450); Eosinophils Percent Auto 0.2 % (2-4); Hematocrit 33.3 % (36-46); Hemoglobin 11.4 g/dL (12.0-16.0); Lymphocytes Absolute Auto 1700 /uL (1100-4500); Lymphocytes Percent Auto 6.7 % (25-40); Mean Corpuscular HGB Conc 34.2 % (30-36); Mean Corpuscular Volume 87.6 fL (80-100); Monocytes Absolute Auto 1300 /uL (0-900); Monocytes Percent Auto 5.1 % (3-14); Neutrophils Absolute Auto 21600 /uL (1500-7000); Neutrophils Percent Auto 87.6 % (50-75); Platelet Count 202 X10^3/uL (150-400); Red Cell Distribution Width 14.2 % (11.6-14.8); White Blood Cell Count 24.7 X10^3/uL (4.5-11.0)
[2023-02-08] MEDS: KETOROLAC 30 MG/ML VIAL IV ×2 (15:28→21:25)
[2023-02-08] MEDS: ACETAMINOPHEN 325 MG TABLET 650 MG PO (18:57)
[2023-02-08 21:23] VITALS: BP 108/78; PULSE 87
[2023-02-08] MEDS: LABETALOL 100 MG TABLET 300 MG PO (21:23)
[2023-02-08] MEDS: diphenhydrAMINE 50 MG/ML VIAL 25 MG IV (21:30)
[2023-02-09 00:10] VITALS: BP 93/63; PULSE 79
[2023-02-09] MEDS: ACETAMINOPHEN 325 MG TABLET 650 MG PO ×4 (01:48→21:41)
[2023-02-09] MEDS: OXYCODONE IR 5 MG TABLET PO ×4 (01:48→19:55)
[2023-02-09] MEDS: KETOROLAC 30 MG/ML VIAL IV (03:39)
[2023-02-09 06:08] LABS: Add Manual Diff / Slide Review NO; Basophils Absolute Auto 100 /uL (0-100); Basophils Percent Auto 0.3 % (0-2); Eosinophils Absolute Auto 200 /uL (0-450); Hematocrit 30.1 % (36-46); Hemoglobin 10.3 g/dL (12.0-16.0); Lymphocytes Absolute Auto 1800 /uL (1100-4500); Lymphocytes Percent Auto 10.1 % (25-40); Mean Corpuscular HGB Conc 34.1 % (30-36); Mean Corpuscular Hemoglobin 30.1 PG (26-34); Mean Corpuscular Volume 88.3 fL (80-100); Monocytes Absolute Auto 1000 /uL (0-900); Monocytes Percent Auto 5.8 % (3-14); Neutrophils Absolute Auto 15000 /uL (1500-7000); Neutrophils Percent Auto 82.8 % (50-75); Platelet Count 224 X10^3/uL (150-400); Red Cell Distribution Width 14.5 % (11.6-14.8); White Blood Cell Count 18.1 X10^3/uL (4.5-11.0)
[2023-02-09 06:15] LABS: Alanine Aminotransferase 23 IU/L (<35); Albumin 3.3 g/dL (3.5-5.0); Albumin Globulin Ratio 1.2 (1.0-2.8); Alkaline Phosphatase 88 U/L (38-126); Aspartate Aminotransferase 26 IU/L (14-36); BUN Creatinine Ratio 9.5 (6-22); Bilirubin Total 0.4 mg/dL (0.2-1.3); Blood Urea Nitrogen 7 mg/dL (7-17); Calcium 8.8 mg/dL (8.4-10.2); Carbon Dioxide 24 mmol/L (22-32); Chloride 104 mmol/L (98-107); Estimated Glomerular Filt Rate > 60 mL/min (>60); Globulin 2.7 g/dL (1.7-4.1); Glucose 115 mg/dL (70-100); HEMOLYSIS < 15 (0-50); Potassium 4.3 mmol/L (3.4-5.1); Sodium 133 mmol/L (137-145)
--- NOTE | 2023-02-09 08:21 | P.PNOB_ITS ---
Subjective - OB Subjective Patient comments: no complaints, pain well controlled, incisional pain, tolerating diet and flatus present baby status: doing well and nursing well [place] feeding status: exclusively breast feeding Narrative: Doing well overnight. No significant nausea and vomiting. Tolerating regular diet, ambulating independently. Date Patient Seen: 02/09/23 Time Patient Seen: 08:22 Exam Vital Signs (past 8 hours): Oxygen Delivery Method Room Air Const General: cooperative and comfortable Nutritional Appearance: average body habitus Orientation: alert and oriented x3 HENMT Head: normal to inspection, atraumatic and abrasion Ears: hearing grossly normal bilaterally Face and sinus: face symmetric Eyes General: appearance normal, both eyes and all related structures Conjunctivae: conjunctivae normal Sclera: sclerae normal EOM: EOM intact bilaterally Neck Neck: normal visual inspection Resp Effort & Inspection: normal respiratory effort and able to speak in complete sentences Auscultation: clear to auscultation bilaterally Cardio Rate: regular rate Rhythm: regular rhythm Heart Sounds: S1 normal, S2 normal and no murmurs GI Inspection: normal to inspection and incision (Surgical dressing clean and dry) Palpation: soft, no hepatosplenomegaly and tender (Mild, diffuse postsurgical tenderness) External Female Exam: other (No significant bleeding noted) Extrem General: no calf tenderness Psych Appearance: grossly normal Mental Status: mental status grossly normal Speech and Movement: speech and movement normal Mood: congruent mood Affect: normal affect Attitude: cooperative Thought Process: normal Thought Content: normal Judgment: judgment good Objective Labs 02/09/23 05:52 02/09/23 05:52 Labs: Laboratory Results - last 24 hr 02/08/23 02/09/23 02/09/23 12:15 05:52 05:52 WBC 24.7 H D 18.1 H RBC 3.80 L 3.40 L Hgb 11.4 L 10.3 L Hct 33.3 L 30.1 L MCV 87.6 88.3 MCH 30.0 30.1 MCHC 34.2 34.1 RDW 14.2 14.5 Plt Count 202 224 Neut % (Auto) 87.6 H 82.8 H Lymph % (Auto) 6.7 L 10.1 L [place] % (Auto) 5.1 5.8 Eos % (Auto) 0.2 L 1.0 L Baso % (Auto) 0.4 0.3 Neut # (Auto) 24765 H 02313 H Lymph # (Auto) 1700 1800 [place] # (Auto) 1300 H 1000 H Eos # (Auto) 100 200 Baso # (Auto) 100 100 Sodium 133 L Potassium 4.3 Chloride 104 Carbon Dioxide 24 BUN 7 Creatinine 0.74 Estimated GFR > 60 BUN/Creatinine Ratio 9.5 Glucose 115 H Calcium 8.8 Total Bilirubin 0.4 AST 26 ALT 23 Alkaline Phosphatase 88 Total Protein 6.0 L Albumin 3.3 L Globulin 2.7 Albumin/Globulin Ratio 1.2 Assessment & Plan Plan day: 1 plan OB: routine postop care Comments: Anticipate discharge in the morning Time Spent With Patient Time: Total time spent is greater than 50% in coordination of care (as documented) at patient's floor/unit and/or counseling patient: Time with patient: 15-24 minutes
[2023-02-09] MEDS: IBUPROFEN 600 MG TABLET PO ×3 (09:33→21:41)
[2023-02-09] MEDS: DOCUSATE 100 MG CAPSULE PO (09:34)
[2023-02-09] MEDS: PRENATAL VIT,CALC/IRON/FOLIC 1 TABLET 1 TAB PO (09:34)
[2023-02-10] MEDS: ACETAMINOPHEN 325 MG TABLET 650 MG PO ×2 (04:17→12:16)
[2023-02-10] MEDS: IBUPROFEN 600 MG TABLET PO ×2 (04:18→12:17)
--- NOTE | 2023-02-10 08:06 | P.DS_ITS ---
Discharge Providers Provider Date of admission: 02/08/23 05:33 Discharge Date: 02/10/23 Primary care physician: Radha MATTSON Provider Consults: 02/08/23 10:31 Consult to [employer] Supervisor Routine Comment: 02/10/23 02:23 Consult to Laboratory Supervisor Routine Comment: for coordination with community resources Discharge provider: Aguila Yoo MD Summary Hospital Course Date Patient Seen: 02/10/23 Time Patient Seen: 08:07 Diagnoses: Intrauterine , 38 weeks gestational age, delivered by repeat section Gestational hypertension Prior section Hospital Course: Patient was admitted on the morning of 02/08/2023 for repeat section at 38 weeks gestational age due to gestational hypertension. She underwent an uneventful repeat section with the details of the procedure well summarized on my operative note of that date. Following delivery both mother and baby have done extremely well with the mother experiencing prompt return of bowel and bladder function, she is ambulating independently, tolerating a regular diet, and her pain is well controlled with oral pain medications. She will be discharged at this time to home after counseling regarding precautionary symptoms, limitations of activity, medications, and plans for follow-up which will be in 1 week. Medications at discharge will include resumption of all preadmission medications including her vitamins and a prescription for oxycodone 5 mg tabs every 6 hours as needed for pain, dispense 20, and ibuprofen 600 mg p.o. q.6 hours as needed pain dispense 30 with 2 refills were prescribed electronically. Peripartum Data Infant Delivery Method: Section Episiotomy description: None complications: none [place] 1: Gender: Male Status at Discharge Cognitive/behavioral status at discharge: oriented Functional status at discharge: independent ambulation Overall status at discharge: patient is progressing back to baseline Time Spent with Patient Time attestation: Total time spent providing and/or coordinating discharge services: Time spent: Less than 30 minutes Objective Labs 02/09/23 05:52 02/09/23 05:52 Exam Vital Signs (past 8 hours): Oxygen Delivery Method Room Air Const General: cooperative and comfortable Nutritional Appearance: average body habitus Orientation: alert and oriented x3 HENMT Head: normal to inspection, atraumatic and abrasion Ears: hearing grossly normal bilaterally Face and sinus: face symmetric Eyes General: appearance normal, both eyes and all related structures Conjunctivae: conjunctivae normal Sclera: sclerae normal EOM: EOM intact bilaterally Neck Neck: normal visual inspection Resp Effort & Inspection: normal respiratory effort and able to speak in complete sentences Auscultation: clear to auscultation bilaterally Cardio Rate: regular rate Rhythm: regular rhythm Heart Sounds: S1 normal, S2 normal and no murmurs GI Inspection: normal to inspection and incision (Compression dressing removed, Aquacel applied) Palpation: soft, no hepatosplenomegaly and tender (Mild, diffuse postsurgical tenderness) External Female Exam: other (No significant bleeding noted) Extrem General: no calf tenderness Psych Appearance: grossly normal Mental Status: mental status grossly normal Speech and Movement: speech and movement normal Mood: congruent mood Affect: normal affect Attitude: cooperative Thought Process: normal Thought Content: normal Judgment: judgment good Discharge Plan Discharge Plan Patient Disposition: Home Provider Discharge Comment: Please review the written instructions you received when you were discharged from the hospital. Your follow-up appointment will be scheduled for 1 week after delivery and I look forward to seeing you then. If however in the meanwhile, you have any issues, concerns, or questions, please contact me either through the office phone at [phone], or via the patient portal. Discharge orders & Medications Prescriptions: New ibuprofen 600 mg Tablet 600 mg PO Q6H Qty: 30 2RF Continued prenat.vits,sherry,[id number] Tablet 1 tab PO DAILY Discontinued labetalol 300 mg tablet 300 mg PO BID Qty: 60 2RF No Action oxycodone 5 mg tablet 5 mg PO Q6H PRN (Reason: Pain, Moderate (4-6)) Qty: 20 0RF Follow up/Referrals: Provider,Radha MATTSON [Primary Care Provider] - Aguila Yoo MD [Physician] - (Your scheduled incision check is for February 16 @2:45pm. Your scheduled 6wk check with Dr. Yoo is March 16 @ 1:45pm.) Discharge Health Status Multidrug resistant organism: No MDRO Diet/Activity/Treatments Diet: Diet as Tolerated Activity: As tolerated Other treatments: Aiei-eps-dnztpyc Tylenol may be used for additional pain relief. Lnlj-est-pbzcxjt stool softeners and/or MiraLax may be used as needed for constipation. Skin/Wound/Dressing Care Dressing: Dressing will be removed at the time of your one-week postop visit. Visit Report/Discharge Packet Instructions: DI for , DI for and Nipple Soreness, DI for Prescription Opioid Use Stand Alone Forms: Discharge: Care Discharge Data Primary Care Provider: Radha Chadwick Discharges patient from system. Discharge Date/Time: 02/10/23 14:00
[2023-02-10 09:00] VITALS: BP 122/65
[2023-02-10] MEDS: DOCUSATE 100 MG CAPSULE PO (09:27)
[2023-02-10] MEDS: PRENATAL VIT,CALC/IRON/FOLIC 1 TABLET 1 TAB PO (09:27)
[2023-02-10 12:32] VITALS: BP 122/65; PULSE 101; RESP 16; TEMP 37.3
[2023-02-10] MEDS: BISACODYL 10 MG SUPP PR (13:00)
--- NOTE | 2023-02-10 15:38 | CM.SWNOTE ---
MANUFACTURERS AGENT Note This MANUFACTURERS AGENT requested for consult to assess needs of this new family- parents both active duty [employer] , first time parents. mom Cecile is s/p c section 5.8.23. Baby boy attison doing well, breast feeding and bottle feeding Met w/mom and dad in room w/ MANUFACTURERS AGENT Autumn, baby boy with dad being bottle fed. Mom w/flat affect which ADDI [place] and Dr Yoo have reported is baseline Reviewed access to basic needs, mom and dad deny needs at this time. Family members are rotating to help w/baby boy for at least 2 weeks. Dad is on leave at this time so will be home to assist Patient admits h/o struggle with anxiety and depression, not entirely forthcoming re history of such. States she has had counselor in the past and will consider again if she feels it is needed. Mom endorses hx of SI, denies current suicidal thoughts or intent to self harm Provided printed information on depression and highlighted symptoms to watch for and when to see a doctor. In addition, reminded mom of [employer] Family resources to include [employer], [employer] and Family Readiness group Strongly encouraged mom and dad to consider utilizing visiting nurse services (info will be provided upon discharge today) Mom and dad deny further needs from this MANUFACTURERS AGENT, plan to take baby boy home today w/private vehicle, assist from family as needed, close outpatient follow up with Supervisor [employer] and OBGYN RANJEET Ngo
== END 2023-02-10 14:00 | disposition home or self-care (01) | DRG 788 ==
PROVIDERS: Admitting Provider Obstetrics & Gynecology; Referring Provider Obstetrics & Gynecology; Visit Provider Obstetrics & Gynecology
PROC: 10D00Z1 Extraction of Products of Conception, Low, Open Approach (ICD-10-PCS; CPT 59514; principal; 2023-02-08 07:45)
DX: O36.63X0 Maternal care for excessive fetal growth, third trimester, not applicable or unspecified (principal); O13.4 Gestational [pregnancy-induced] hypertension without significant proteinuria, complicating childbirth; Z3A.38 38 weeks gestation of pregnancy; Z37.0 Single live birth; Z20.822 Contact with and (suspected) exposure to COVID-19
CPT/HCPCS: 36415; 59050; 59510; 59514; 80053; 85025; 86850; 86900; 86901; J0690; J1200; J1885; J2210

== ENCOUNTER 2023-02-28 18:53 | Observation (INO) | payer OTHER, SELFPAY ==
[2023-02-28] VITALS (14 sets, daily range): BP systolic 110–142; BP diastolic 75–86; PULSE 82–113; RESP 16–22; TEMP 37.4–38.2; O2SAT 98–100; BMI 31.9
--- NOTE | 2023-02-28 19:10 | DI.RAD.S_ITS ---
PROCEDURE: XR CHEST 1V INDICATIONS: suspected sepsis TECHNIQUE: One view of the chest was acquired. COMPARISON: None. FINDINGS: Surgical changes and devices: None. Lungs and pleura: Lungs are clear. No pleural effusions or pneumothorax. Mediastinum: Mediastinal contours appear normal. Heart size is normal. Bones and chest wall: No suspicious bony lesions. Overlying soft tissues appear unremarkable. IMPRESSION: No acute cardiopulmonary abnormality. Approved by: Oneal Reyes M.D. on 02/28/2023 at 19:58
[2023-02-28] MEDS: SODIUM CHLORIDE 0.9% 1,000 ML 1000 ML IV (19:41)
[2023-02-28 19:47] LABS: Appearance Urine UA CLEAR; Bilirubin Urine UA NEGATIVE (NEGATIVE); Color Urine UA YELLOW; Glucose Urine UA NEGATIVE (Negative); Ketones Urine UA NEGATIVE (NEGATIVE); Leukocyte Esterase Urine UA TRACE (NEGATIVE); Nitrite Urine UA NEGATIVE (Negative); Occult Blood Urine UA 1+ (Negative); Protein Urine UA NEGATIVE (Negative); Specific Gravity Urine UA <=1.005 (1.000-1.035); Urobilinogen Urine UA 0.2 E.U./dL (0.2)
--- NOTE | 2023-02-28 19:52 | DI.CT.S_ITS ---
PROCEDURE: CT ABDOMEN PELVIS W CON INDICATIONS: RLQ pain post c section TECHNIQUE: After the administration of intravenous contrast, axial sections acquired from the lung bases to the pubic symphysis. Coronal and sagittal reformats were performed. For radiation dose reduction, the following was used: automated exposure control, adjustment of mA and/or kV according to patient size. COMPARISON: None. FINDINGS: Image quality: Excellent. Lung bases: Unremarkable. Heart: No significant findings. ABDOMEN: Liver: Unremarkable. Gallbladder: Gallbladder is contracted, which compromises evaluation. Biliary ducts: Unremarkable. Pancreas: Unremarkable. Spleen: Spleen is enlarged, measuring 14.2 cm in craniocaudal dimension. A wedge-shaped area of hypodensity is seen in the posterior spleen that is suspicious for splenic infarct. Additional smaller linear hypodensity is seen more anteriorly in the spleen. The main splenic vein appears patent without thrombus. No adjacent hemorrhage is seen. Adrenal Glands: Unremarkable. Kidneys and Ureters: Unremarkable. Stomach and Bowel: Nondilated appendix is seen without surrounding inflammatory changes. No signs of bowel obstruction. Stomach is unremarkable. Peritoneum: Trace free fluid in the pelvis. Ventral Wall: No significant ventral hernia. Abdominal Nodes: No retroperitoneal or mesenteric adenopathy by size criteria. Vessels: Aorta and inferior vena cava are normal in size. PELVIS: Pelvic Organs: Post gravid uterus. Postsurgical changes are noted in the anterior pelvis and lower abdominal wall. Ovaries are symmetric. Bladder: Bladder wall thickening at the superior aspect of the bladder, which may be related to the recent surgery although acute cystitis is not excluded. Pelvic Nodes: No enlarged lymph nodes. Miscellaneous: No hernias are seen. Bones: Unremarkable. IMPRESSION: 1. Post gravid uterus with surrounding postsurgical changes in the lower abdomen. No focal fluid collection is seen to suggest abscess. 2. Mild bowel wall thickening may be reactive to the adjacent surgery versus secondary to cystitis. Recommend correlation with urinalysis. 3. Mild splenomegaly. Hypoattenuating areas in the spleen are suspicious for splenic infarcts. The splenic vein is patent. No perisplenic fluid collection or hematoma is seen. 4. Normal appearance of the appendix in the right lower quadrant. Approved by: Oneal Reeys M.D. on 02/28/2023 at 20:52
--- NOTE | 2023-02-28 19:52 | ED.ABDPAIN ---
HPI - Abdominal Pain General Chief Complaint: Fever Stated Complaint: Fever, think C-setion incision may be infected Time Seen by Provider: 02/28/23 19:11 Source: patient Mode of arrival: Ambulatory History of Present Illness HPI narrative: Patient is a healthy 27-year-old female status post 02/08/2023 presents today with 2 days of fever. She is having some right lower quadrant pain as well. She denies any cough sore throat nausea vomiting headache diarrhea. She has some mild right lower quadrant pain thought her might be infected however she has no erythema or swelling. She reports that her vaginal bleeding is very minimal. She is not currently . She was taking labetalol for gestational hypertension but has stopped. Related Data Home Medications Medication Instructions Recorded Confirmed prenat.vits,sherry,[id number] 1 tab PO DAILY 07/08/22 02/16/23 Previous Rx's Medication Instructions Recorded ibuprofen 600 mg tablet 600 mg PO Q6H #30 tabs 02/10/23 Allergies Allergy/AdvReac Type Severity Reaction Status Date / Time No Known Drug Allergies Allergy Verified 02/16/23 14:51 Review of Systems Review of Systems ROS Unobtainable: All systems reviewed & are unremarkable except as noted in HPI and below Patient History Medical History Rosacea (~1994) Surgical History Anesthesia Surrency teeth extracted (~2010) Family History Mother Breast cancer Father History of blood clots Grandfather Prostate cancer Testicular cancer Grandmother Hyperlipidemia Hypertension Grandmother Diabetes mellitus Social History marital status: number of children: 0 household members: significant other and none lives independently: Yes housing: apartment pets and animals: No education level: high school 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 ) special chace needs: No travel history: over 6 months ago seatbelt use: always water heater temp set < 120 deg: Yes working smoke detector in home: Yes fire extinguisher in home: Yes carbon monox detector in home: Yes firearms in home: No do you feel safe at home: Yes Smoking Status: Former smoker Tobacco: How many years used: 2 second hand exposure: No alcohol intake: current substance use type: does not use during the past year weight has: increased > 10 lbs well-balanced diet: rarely or never daily servings fruits/ve-1 Type(s) of exercise: walking, regular exercise and weight lifting frequency: 3-4 times per week Smoking Status: Former smoker alcohol intake frequency: holidays/special occasions only Substance Use Type: does not use Exam Initial Vital Signs Initial Vital Signs: Vital Signs Temperature 100.7 F H 02/28/23 18:57 Pulse Rate 113 H 02/28/23 18:57 Respiratory Rate 16 02/28/23 18:57 Blood Pressure 142/86 H 02/28/23 18:57 Pulse Oximetry 100 02/28/23 18:57 Oxygen Delivery Method Room Air 02/28/23 18:57 GENERAL: Alert pleasant well-appearing 27-year-old female and in no acute distress. HEENT: Head atraumatic,EOMI, pupils reactive, face symmetric, moist mucous membranes CARDIOVASCULAR: Regular rate and rhythm without murmurs, rubs or gallops. RESPIRATORY: Breath sounds equal bilaterally, no wheezes rales or rhonchi. ABDOMEN: Soft, minor right lower quadrant pain no guarding no rebound negative Rodas sign. No left upper quadrant pain no splenomegaly : No CVA tenderness EXTREMITIES: Normal range of motion, no clubbing or edema. Neurovascularly intact NEUROLOGICAL: Alert and oriented x4. SKIN: Warm, dry, no laceration, no petechiae, no rashes or lesions. scar covered and Steristrips, no erythema no tenderness Course Orders Ordered: ED Orders 02/28/23 19:08 Urinalysis and Microscopic Stat Urine Culture Stat 02/28/23 19:10 XR chest 1V Stat EKG-12 Lead Stat 02/28/23 19:18 Covid-19 + FLU A/B + RSV - PCR Stat Respiratory Panel (Film Array) Stat 02/28/23 19:47 CRP [C-Reactive Protein Quant] Stat Complete Blood Count AUTO DIFF Stat Comprehensive Metabolic Panel Stat ESR [Erythrocyte Sedimentation Rate] Stat Lactate (Lactic Acid) Stat Lipase Stat PTT Partial Thromboplastin Sammy Stat Procalcitonin Stat Prothrombin Time INR Stat 02/28/23 19:52 CT abdomen pelvis w con Stat 02/28/23 20:05 Blood Culture Stat 02/28/23 21:20 CT angio chest PE protocol Stat Acetaminophen (Acetaminophen 325 Mg Tablet) 650 mg PO Q6H PRN PRN Reason: Fever/Mild Pain (1-3) Last Admin: 03/01/23 02:22 Dose: 650 mg Documented By: DIONY Enoxaparin Sodium (Enoxaparin 40 Mg/0.4 Ml Syringe) 40 mg SUBCUT DAILY SHANKAR Ampicillin Sodium 2,000 mg/ (Sodium Chloride) 100 mls @ 200 mls/hr IV Q6H SHANKAR Ibuprofen (Ibuprofen 600 Mg Tablet) 600 mg PO Q6H PRN PRN Reason: Fever/Mild Pain (1-3) Naloxone HCl (Naloxone 0.4 Mg/Ml Vial) 0.2 mg IV Q2MIN PRN PRN Reason: Opiate Reversal Ondansetron HCl (Ondansetron 4 Mg Odt) 4 mg PO Q8HR PRN PRN Reason: Nausea And Vomiting Discontinued Medications Sodium Chloride (Normal Saline 0.9%) 1,000 mls @ 1,000 mls/hr IV BOLUS ONE Stop: 02/28/23 20:09 Last Infusion: 02/28/23 20:17 Dose: 0 mls/hr Documented By: Admin: 02/28/23 19:41 Dose: 1,000 mls/hr Documented By: Ampicillin Sodium 2,000 mg/ (Sodium Chloride) 100 mls @ 200 mls/hr IV NOW ONE Stop: 02/28/23 23:48 Last Infusion: 03/01/23 01:05 Dose: 0 mls/hr Documented By: Admin: 03/01/23 00:07 Dose: 200 mls/hr Documented By: Gentamicin Sulfate 350 mg/ (Sodium Chloride) 108.75 mls @ 108.75 mls/hr IV NOW ONE Stop: 02/28/23 23:48 Last Admin: 03/01/23 00:59 Dose: 108.75 mls/hr Documented By: LEAH Vital Signs Vital signs: Vital Signs - 8 hr 02/28/23 18:57 02/28/23 19:35 02/28/23 19:40 Temperature 100.7 F H Pulse Rate 113 H Respiratory Rate 16 Blood Pressure 142/86 H 132/75 Pulse Oximetry 100 98 Oxygen Delivery Method Room Air 02/28/23 19:40 02/28/23 19:59 02/28/23 20:00 Temperature Pulse Rate 98 H 95 H Respiratory Rate 16 Blood Pressure 123/84 Pulse Oximetry 99 99 Oxygen Delivery Method 02/28/23 20:00 02/28/23 20:30 02/28/23 20:57 Temperature Pulse Rate 94 H 90 Respiratory Rate 18 Blood Pressure 126/77 Pulse Oximetry 100 98 Oxygen Delivery Method 02/28/23 20:57 02/28/23 21:01 02/28/23 21:30 Temperature 99.3 F Pulse Rate 91 H 94 H 100 H Respiratory Rate 20 20 Blood Pressure Pulse Oximetry 99 99 99 Oxygen Delivery Method 02/28/23 22:00 02/28/23 22:30 02/28/23 22:38 Temperature Pulse Rate 88 82 89 Respiratory Rate 18 19 22 Blood Pressure Pulse Oximetry 99 99 98 Oxygen Delivery Method 02/28/23 22:38 02/28/23 23:00 02/28/23 23:30 Temperature Pulse Rate 85 88 Respiratory Rate 20 22 Blood Pressure 110/76 Pulse Oximetry 98 99 Oxygen Delivery Method MDM - Abdominal Pain Lab Data 02/28/23 19:47 02/28/23 19:47 Labs: Lab Results 02/28/23 02/28/23 02/28/23 Range/Units 19:08 19:18 19:18 WBC (4.5-11.0) X10^3/uL RBC (4.0-5.2) X10^6/uL Hgb (12.0-16.0) g/dL Hct (36-46) % MCV (80-100) fL MCH (26-34) PG MCHC (30-36) % RDW (11.6-14.8) % Plt Count (150-400) X10^3/uL Neut % (Auto) (50-75) % Lymph % (Auto) (25-40) % [place] % (Auto) (3-14) % Eos % (Auto) (2-4) % Baso % (Auto) (0-2) % Neut # (Auto) (1154-6801) /uL Lymph # (Auto) (0954-3273) /uL [place] # (Auto) (0-900) /uL Eos # (Auto) (0-450) /uL Baso # (Auto) (0-100) /uL ESR (0-20) MM/HR PT (10.1-12.7) SECONDS INR (0.9-1.3) APTT (26-36) SECONDS Sodium (137-145) mmol/L Potassium (3.4-5.1) mmol/L Chloride (98-107) mmol/L Carbon Dioxide (22-32) mmol/L BUN (7-17) mg/dL Creatinine (0.52-1.04) mg/dL Estimated GFR (>60) mL/min BUN/Creatinine Ratio (6-22) Glucose (70-100) mg/dL Lactate (0.7-2.1) mmol/L Calcium (8.4-10.2) mg/dL Total Bilirubin (0.2-1.3) mg/dL AST (14-36) IU/L ALT (<35) IU/L Alkaline Phosphatase (38-126) U/L C-Reactive Protein (<1.0) mg/dL Total Protein (6.3-8.2) g/dL Albumin (3.5-5.0) g/dL Globulin (1.7-4.1) g/dL Albumin/Globulin Ratio (1.0-2.8) Lipase (23-300) U/L Procalcitonin (<0.5) ng/mL Urine Color Yellow Urine Appearance Clear Urine pH 6.0 (4.5-8.0) Ur Specific [place] <=1.005 (1.000-1.035) Urine Protein Negative (Negative) Urine Glucose (UA) Negative (Negative) g/dL Urine Ketones Negative (NEGATIVE) Urine Occult Blood 1+ H (Negative) Urine Nitrate Negative (Negative) Urine Bilirubin Negative (NEGATIVE) Urine Urobilinogen 0.2 (0.2) E.U./dL Ur Leukocyte Esterase Trace H (NEGATIVE) Urine RBC None seen (0-5/HPF) Urine WBC 1-5/hpf (0-5/HPF) Ur Squamous Epith Cells 0-1 /hpf (0-5/HPF) Urine Bacteria Occasional (0-1) (None) Ur Culture Indicated? Specimen cultured Chlamy pneumoniae PCR Not detected (Not Detect) Adenovirus (PCR) Not detected (Not Detect) B. pertussis DNA (PCR) Not detected (Not Detecte) B.parapertussis DNA PCR Not detected (Not Detecte) Coronavirus OC43 (PCR) Not detected (Not Detect) Coronavirus HKU1 (PCR) Not detected (Not Detect) Coronavirus 229E (PCR) Not detected (Not Detect) SARS-CoV-2 (PCR) Negative Not detected (Negative) Coronavirus NL63 (PCR) Not detected (Not Detect) Human Metapneumovir PCR Not detected (Not Detect) Influenza A (RT-PCR) Flu a negative (NEGATIVE) Influenza Type A (PCR) Not detected (Not Detect) Influenza B (RT-PCR) Flu b negative (NEGATIVE) Influenza Type B (PCR) Not detected (Not Detect) M. pneumoniae (PCR) Not detected (Not Detect) Parainfluenza 1 (PCR) Not detected (Not Detect) Parainfluenza 2 (PCR) Not detected (Not Detect) Parainfluenza 3 (PCR) Not detected (Not Detect) Parainfluenza 4 (PCR) Not detected (Not Detect) RSV (PCR) Negative Not detected (Negative) Entero/Rhino (PCR) Not detected (Not Detect) 02/28/23 02/28/23 02/28/23 Range/Units 19:47 19:47 19:47 WBC 8.6 (4.5-11.0) X10^3/uL RBC 4.17 (4.0-5.2) X10^6/uL Hgb 11.9 L (12.0-16.0) g/dL Hct 35.1 L (36-46) % MCV 84.1 (80-100) fL MCH 28.6 (26-34) PG MCHC 34.0 (30-36) % RDW 15.3 H (11.6-14.8) % Plt Count 291 (150-400) X10^3/uL Neut % (Auto) 57.9 (50-75) % Lymph % (Auto) 30.7 (25-40) % [place] % (Auto) 9.1 (3-14) % Eos % (Auto) 1.6 L (2-4) % Baso % (Auto) 0.7 (0-2) % Neut # (Auto) 5000 (8847-6381) /uL Lymph # (Auto) 2600 (5238-6463) /uL [place] # (Auto) 800 (0-900) /uL Eos # (Auto) 100 (0-450) /uL Baso # (Auto) 100 (0-100) /uL ESR (0-20) MM/HR PT 14.2 H (10.1-12.7) SECONDS INR 1.2 (0.9-1.3) APTT 32 (26-36) SECONDS Sodium 141 (137-145) mmol/L Potassium 4.1 (3.4-5.1) mmol/L Chloride 103 (98-107) mmol/L Carbon Dioxide 26 (22-32) mmol/L BUN 7 (7-17) mg/dL Creatinine 1.02 (0.52-1.04) mg/dL Estimated GFR > 60 (>60) mL/min BUN/Creatinine Ratio 6.9 (6-22) Glucose 103 H (70-100) mg/dL Lactate (0.7-2.1) mmol/L Calcium 9.0 (8.4-10.2) mg/dL Total Bilirubin 0.5 (0.2-1.3) mg/dL AST 41 H (14-36) IU/L ALT 32 (<35) IU/L Alkaline Phosphatase 98 (38-126) U/L C-Reactive Protein (<1.0) mg/dL Total Protein 8.0 (6.3-8.2) g/dL Albumin 4.5 (3.5-5.0) g/dL Globulin 3.5 (1.7-4.1) g/dL Albumin/Globulin Ratio 1.3 (1.0-2.8) Lipase 110 (23-300) U/L Procalcitonin 0.17 (<0.5) ng/mL Urine Color Urine Appearance Urine pH (4.5-8.0) Ur Specific [place] (1.000-1.035) Urine Protein (Negative) Urine Glucose (UA) (Negative) g/dL Urine Ketones (NEGATIVE) Urine Occult Blood (Negative) Urine Nitrate (Negative) Urine Bilirubin (NEGATIVE) Urine Urobilinogen (0.2) E.U./dL Ur Leukocyte Esterase (NEGATIVE) Urine RBC (0-5/HPF) Urine WBC (0-5/HPF) Ur Squamous Epith Cells (0-5/HPF) Urine Bacteria (None) Ur Culture Indicated? Chlamy pneumoniae PCR (Not Detect) Adenovirus (PCR) (Not Detect) B. pertussis DNA (PCR) (Not Detecte) B.parapertussis DNA PCR (Not Detecte) Coronavirus OC43 (PCR) (Not Detect) Coronavirus HKU1 (PCR) (Not Detect) Coronavirus 229E (PCR) (Not Detect) SARS-CoV-2 (PCR) (Negative) Coronavirus NL63 (PCR) (Not Detect) Human Metapneumovir PCR (Not Detect) Influenza A (RT-PCR) (NEGATIVE) Influenza Type A (PCR) (Not Detect) Influenza B (RT-PCR) (NEGATIVE) Influenza Type B (PCR) (Not Detect) M. pneumoniae (PCR) (Not Detect) Parainfluenza 1 (PCR) (Not Detect) Parainfluenza 2 (PCR) (Not Detect) Parainfluenza 3 (PCR) (Not Detect) Parainfluenza 4 (PCR) (Not Detect) RSV (PCR) (Negative) Entero/Rhino (PCR) (Not Detect) 02/28/23 02/28/23 02/28/23 Range/Units 19:47 19:47 19:47 WBC (4.5-11.0) X10^3/uL RBC (4.0-5.2) X10^6/uL Hgb (12.0-16.0) g/dL Hct (36-46) % MCV (80-100) fL MCH (26-34) PG MCHC (30-36) % RDW (11.6-14.8) % Plt Count (150-400) X10^3/uL Neut % (Auto) (50-75) % Lymph % (Auto) (25-40) % [place] % (Auto) (3-14) % Eos % (Auto) (2-4) % Baso % (Auto) (0-2) % Neut # (Auto) (8641-7656) /uL Lymph # (Auto) (0380-9991) /uL [place] # (Auto) (0-900) /uL Eos # (Auto) (0-450) /uL Baso # (Auto) (0-100) /uL ESR 46 H (0-20) MM/HR PT (10.1-12.7) SECONDS INR (0.9-1.3) APTT (26-36) SECONDS Sodium (137-145) mmol/L Potassium (3.4-5.1) mmol/L Chloride (98-107) mmol/L Carbon Dioxide (22-32) mmol/L BUN (7-17) mg/dL Creatinine (0.52-1.04) mg/dL Estimated GFR (>60) mL/min BUN/Creatinine Ratio (6-22) Glucose (70-100) mg/dL Lactate 1.2 (0.7-2.1) mmol/L Calcium (8.4-10.2) mg/dL Total Bilirubin (0.2-1.3) mg/dL AST (14-36) IU/L ALT (<35) IU/L Alkaline Phosphatase (38-126) U/L C-Reactive Protein 3.2 H (<1.0) mg/dL Total Protein (6.3-8.2) g/dL Albumin (3.5-5.0) g/dL Globulin (1.7-4.1) g/dL Albumin/Globulin Ratio (1.0-2.8) Lipase (23-300) U/L Procalcitonin (<0.5) ng/mL Urine Color Urine Appearance Urine pH (4.5-8.0) Ur Specific [place] (1.000-1.035) Urine Protein (Negative) Urine Glucose (UA) (Negative) g/dL Urine Ketones (NEGATIVE) Urine Occult Blood (Negative) Urine Nitrate (Negative) Urine Bilirubin (NEGATIVE) Urine Urobilinogen (0.2) E.U./dL Ur Leukocyte Esterase (NEGATIVE) Urine RBC (0-5/HPF) Urine WBC (0-5/HPF) Ur Squamous Epith Cells (0-5/HPF) Urine Bacteria (None) Ur Culture Indicated? Chlamy pneumoniae PCR (Not Detect) Adenovirus (PCR) (Not Detect) B. pertussis DNA (PCR) (Not Detecte) B.parapertussis DNA PCR (Not Detecte) Coronavirus OC43 (PCR) (Not Detect) Coronavirus HKU1 (PCR) (Not Detect) Coronavirus 229E (PCR) (Not Detect) SARS-CoV-2 (PCR) (Negative) Coronavirus NL63 (PCR) (Not Detect) Human Metapneumovir PCR (Not Detect) Influenza A (RT-PCR) (NEGATIVE) Influenza Type A (PCR) (Not Detect) Influenza B (RT-PCR) (NEGATIVE) Influenza Type B (PCR) (Not Detect) M. pneumoniae (PCR) (Not Detect) Parainfluenza 1 (PCR) (Not Detect) Parainfluenza 2 (PCR) (Not Detect) Parainfluenza 3 (PCR) (Not Detect) Parainfluenza 4 (PCR) (Not Detect) RSV (PCR) (Negative) Entero/Rhino (PCR) (Not Detect) Point of care testing: Urine Dip Bedside Urine Glucose Negative Bedside Urine Bilirubin - Negative Bedside Urine Ketone - Negative Urine Specific [place] 1.00 Bedside Urine Occult Blood + Bedside Urine pH 7.0 Bedside Urine Protein - Negative Bedside Urine Urobilinogen - Negative Bedside Urine Nitrite - Negative Bedside Urine Leukocytes - Negative Esterase Imaging Data Chest x-ray: Radiologist's Impression: PROCEDURE:? XR CHEST 1V ? INDICATIONS:? suspected sepsis ? TECHNIQUE:? One view of the chest was acquired.? ? COMPARISON:? None. ? FINDINGS:? ? Surgical changes and devices:? None.? ? Lungs and pleura:? Lungs are clear.? No pleural effusions or pneumothorax.? ? Mediastinum:? Mediastinal contours appear normal.? Heart size is normal.? ? Bones and chest wall:? No suspicious bony lesions.? Overlying soft tissues appear unremarkable.? ? IMPRESSION:? No acute cardiopulmonary abnormality. ? ? ? Approved by: Oneal Reyes M.D. on 02/28/2023 at 19:58? CT scan - abdomen/pelvis: Radiologist's Impression: PROCEDURE:? CT ABDOMEN PELVIS W CON ? INDICATIONS:? RLQ pain post c section ? TECHNIQUE:? After the administration of intravenous contrast, axial sections acquired from the lung bases to the pubic symphysis.? Coronal and sagittal reformats were performed.? For radiation dose reduction, the following was used:? automated exposure control, adjustment of mA and/or kV according to patient size.? ? COMPARISON:? None. ? FINDINGS:? Image quality:? Excellent.? ? Lung bases:? Unremarkable. Heart:? No significant findings. ? ABDOMEN: Liver:? Unremarkable.? ? Gallbladder:? Gallbladder is contracted, which compromises evaluation. Biliary ducts:? Unremarkable.? ? Pancreas:? Unremarkable.? ? Spleen:? Spleen is enlarged, measuring 14.2 cm in craniocaudal dimension.? A wedge-shaped area of hypodensity is seen in the posterior spleen that is suspicious for splenic infarct.? Additional smaller linear hypodensity is seen more anteriorly in the spleen.? The main splenic vein appears patent without thrombus.? No adjacent hemorrhage is seen. Adrenal Glands:? Unremarkable.? ? Kidneys and Ureters:? Unremarkable.? ? ? Stomach and Bowel:? Nondilated appendix is seen without surrounding inflammatory changes. ?No signs of bowel obstruction.? Stomach is unremarkable.? Peritoneum:? Trace free fluid in the pelvis. ? Ventral Wall: ? No significant ventral hernia.? Abdominal Nodes:? No retroperitoneal or mesenteric adenopathy by size criteria.? Vessels:? Aorta and inferior vena cava are normal in size.? ? PELVIS: Pelvic Organs:? Post gravid uterus.? Postsurgical changes are noted in the anterior pelvis and lower abdominal wall.? Ovaries are symmetric. Bladder:? Bladder wall thickening at the superior aspect of the bladder, which may be related to the recent surgery although acute cystitis is not excluded. Pelvic Nodes: No enlarged lymph nodes.? Miscellaneous: No hernias are seen. ? ? ? Bones:? Unremarkable.? ? ? IMPRESSION:? 1. Post gravid uterus with surrounding postsurgical changes in the lower abdomen.? No focal fluid collection is seen to suggest abscess. 2. Mild bowel wall thickening may be reactive to the adjacent surgery versus secondary to cystitis.? Recommend correlation with urinalysis. 3. Mild splenomegaly.? Hypoattenuating areas in the spleen are suspicious for splenic infarcts.? The splenic vein is patent.? No perisplenic fluid collection or hematoma is seen. 4. Normal appearance of the appendix in the right lower quadrant. ? Approved by: Oneal Reyes M.D. on 02/28/2023 at 20:52? CT scan - chest: Radiologist's Impression: PROCEDURE:? CT ANGIO CHEST PE PROTOCOL ? INDICATIONS:? post splenic infarct and fever ? TECHNIQUE:? After the administration of intravenous contrast, 2 mm thick sections acquired from the pulmonary apices to the posterior costophrenic angles.? 3-dimensional maximum intensity projection (MIP) coronal and sagittal reformats were then acquired through the thorax.? For radiation dose reduction, the following was used:? automated exposure control, adjustment of mA and/or kV according to patient size.? ? COMPARISON:? [facility], CR, XR CHEST 1V, 02/28/2023, 19:17.? [facility], CT, CT ABDOMEN PELVIS W CON, 02/28/2023, 20:15. ? FINDINGS:? Image quality:? Excellent.? ? Pulmonary arteries:? Pulmonary arteries are normal in size, and demonstrate no intraluminal filling defects to suggest central pulmonary embolism.? There is suboptimal opacification of the pulmonary arteries, and the small subsegmental pulmonary artery branches are not optimally evaluated. ? Lungs and pleura:? Lungs are clear.? No pleural effusions or pneumothorax.? Central and peripheral airways are patent.? ? Mediastinum:? Heart size is normal, without pericardial effusion.? No mediastinal or hilar adenopathy.? Thoracic aorta is normal in caliber and enhancement.? Esophagus is normal in caliber, without hiatal hernia.? ? Bones and chest wall:? No suspicious bony lesions.? Ribs and thoracic spine appear intact throughout.? Thyroid is unremarkable.? Mildly enlarged right axillary lymph nodes are nonspecific.? Left axillary and supraclavicular lymph nodes are within normal limits.? ? Abdomen:? Splenomegaly.? Wedge-shaped splenic infarcts again noted.? The splenic artery and vein are patent.? No active contrast extravasation.? No perisplenic hematoma.? ? ? IMPRESSION:? 1. No acute pulmonary embolus. 2. Splenomegaly with small splenic infarcts, as seen on CT from earlier the same day.? No active contrast extravasation.? No perisplenic hematoma. 3. Mildly enlarged right axillary lymph nodes are nonspecific and likely reactive.? Approved by: Oneal Reyes M.D. on 02/28/2023 at 22:05? ECG Data Interpretation: Sinus tachycardia rate 100 MI interval 120 QRS [address] changes T-wave inversion noted in lead 3 S wave also noted only in lead 3 MDM Narrative Medical decision making narrative: Patient 27-year-old female status post 3 weeks ago presenting today with 3 days of fever body aches and chills mild right-sided lower quadrant pain. She has no leukocytosis normal lactic acid negative procalcitonin. She is febrile and tachycardic upon arrival concern for SIRS and sepsis. No actual source of infection is found. Urinalysis is negative viral panel is negative chest x-ray is negative. CT does not show any cause of right lower quadrant pain but does have incidental finding of splenic infarcts. There is some mild bowel thickening may be reactive to adjacent surgery versus a secondary cystitis however urinalysis is negative and she does not have symptoms of UTI. Concern for possible endocarditis although he awake alert appears well and vitals are stable. No new murmurs are heard. She is no evidence of a splenic abscess she is nontender in her left upper quadrant. She may also have endometritis causing fever and mild suprapubic pain. Unlikely to be an amniotic fluid emboli [address] Sawyer, on-call for surgery updated patient's symptoms test results, at this time no clear explanation of fever, no clear explanation for splenic infarcts recommend talking to be, nothing surgical at this time Dr. Flores, on-call for Ob updated patient's symptoms test results also thinks possible endometritis however can explain splenomegaly recommends talking to [facility]. , at Ob updated on symptoms test results thinks highly unlikely to be related to and agrees with probably treating for an endometritis. Patient is nontoxic appearing CT angio chest does not show any evidence of septic emboli or pulmonary embolism in the chest region. He is treated with ampicillin gentamicin for possible endometritis. Discussed again with Dr. Flores agrees with admission to hospital for echo and further workup. Patient's vitals remain stable without evidence of hypotension or severe sepsis. ESR and CRP are also elevated nonspecific but do suggest some infection. Discharge Plan Departure Patient Disposition: Admitted as Observation Clinical Impression: Acute endometritis, Infarction of spleen Admit Date/Time: 02/28/23 23:59 Admit Provider: Nakita Flores
[2023-02-28 19:59] LABS: Add Manual Diff / Slide Review NO; Basophils Absolute Auto 100 /uL (0-100); Basophils Percent Auto 0.7 % (0-2); Eosinophils Absolute Auto 100 /uL (0-450); Eosinophils Percent Auto 1.6 % (2-4); Hematocrit 35.1 % (36-46); Hemoglobin 11.9 g/dL (12.0-16.0); Lymphocytes Absolute Auto 2600 /uL (1100-4500); Lymphocytes Percent Auto 30.7 % (25-40); Mean Corpuscular Hemoglobin 28.6 PG (26-34); Mean Corpuscular Volume 84.1 fL (80-100); Monocytes Absolute Auto 800 /uL (0-900); Monocytes Percent Auto 9.1 % (3-14); Neutrophils Absolute Auto 5000 /uL (1500-7000); Neutrophils Percent Auto 57.9 % (50-75); Platelet Count 291 X10^3/uL (150-400); Red Blood Cell Count 4.17 X10^6/uL (4.0-5.2); Red Cell Distribution Width 15.3 % (11.6-14.8); White Blood Cell Count 8.6 X10^3/uL (4.5-11.0)
[2023-02-28 20:02] LABS: Influenza A - CEPHEID Flu A NEGATIVE (NEGATIVE); Influenza B - CEPHEID Flu B NEGATIVE (NEGATIVE); Respiratory Syncytial Virus Negative (Negative)
[2023-02-28 20:03] LABS: INR 1.2 (0.9-1.3); Prothrombin Time 14.2 SECONDS (10.1-12.7)
[2023-02-28 20:05] LABS: Lactate (Lactic Acid) 1.2 mmol/L (0.7-2.1); PTT Partial Thromboplastin Tim 32 SECONDS (26-36)
[2023-02-28 20:07] LABS: Alanine Aminotransferase 32 IU/L (<35); Albumin 4.5 g/dL (3.5-5.0); Albumin Globulin Ratio 1.3 (1.0-2.8); Alkaline Phosphatase 98 U/L (38-126); Aspartate Aminotransferase 41 IU/L (14-36); BUN Creatinine Ratio 6.9 (6-22); Bilirubin Total 0.5 mg/dL (0.2-1.3); Blood Urea Nitrogen 7 mg/dL (7-17); Carbon Dioxide 26 mmol/L (22-32); Chloride 103 mmol/L (98-107); Estimated Glomerular Filt Rate > 60 mL/min (>60); Globulin 3.5 g/dL (1.7-4.1); Glucose 103 mg/dL (70-100); HEMOLYSIS < 15 (0-50); Lipase 110 U/L (23-300); Potassium 4.1 mmol/L (3.4-5.1); Sodium 141 mmol/L (137-145)
[2023-02-28 20:11] LABS: Bacteria Urine Occasional (0-1); Culture Indicated Urine Specimen Cultured; RBC Urine None Seen (0-5/HPF); Squamous Epithelial Cell Urine 0-1 /HPF (0-5/HPF); WBC Urine 1-5/HPF (0-5/HPF)
[2023-02-28 20:12] LABS: COVID-19 CEPHEID 4-PLEX PCR Negative (Negative)
[2023-02-28 20:23] LABS: Procalcitonin 0.17 ng/mL (<0.5)
--- NOTE | 2023-02-28 21:20 | DI.CT.S_ITS ---
PROCEDURE: CT ANGIO CHEST PE PROTOCOL INDICATIONS: post splenic infarct and fever TECHNIQUE: After the administration of intravenous contrast, 2 mm thick sections acquired from the pulmonary apices to the posterior costophrenic angles. 3-dimensional maximum intensity projection (MIP) coronal and sagittal reformats were then acquired through the thorax. For radiation dose reduction, the following was used: automated exposure control, adjustment of mA and/or kV according to patient size. COMPARISON: [facility], CR, XR CHEST 1V, 02/28/2023, 19:17. [facility], CT, CT ABDOMEN PELVIS W CON, 02/28/2023, 20:15. FINDINGS: Image quality: Excellent. Pulmonary arteries: Pulmonary arteries are normal in size, and demonstrate no intraluminal filling defects to suggest central pulmonary embolism. There is suboptimal opacification of the pulmonary arteries, and the small subsegmental pulmonary artery branches are not optimally evaluated. Lungs and pleura: Lungs are clear. No pleural effusions or pneumothorax. Central and peripheral airways are patent. Mediastinum: Heart size is normal, without pericardial effusion. No mediastinal or hilar adenopathy. Thoracic aorta is normal in caliber and enhancement. Esophagus is normal in caliber, without hiatal hernia. Bones and chest wall: No suspicious bony lesions. Ribs and thoracic spine appear intact throughout. Thyroid is unremarkable. Mildly enlarged right axillary lymph nodes are nonspecific. Left axillary and supraclavicular lymph nodes are within normal limits. Abdomen: Splenomegaly. Wedge-shaped splenic infarcts again noted. The splenic artery and vein are patent. No active contrast extravasation. No perisplenic hematoma. IMPRESSION: 1. No acute pulmonary embolus. 2. Splenomegaly with small splenic infarcts, as seen on CT from earlier the same day. No active contrast extravasation. No perisplenic hematoma. 3. Mildly enlarged right axillary lymph nodes are nonspecific and likely reactive. Approved by: Oneal Reyes M.D. on 02/28/2023 at 22:05
[2023-02-28 21:37] LABS: C-Reactive Protein Quant 3.2 mg/dL (<1.0)
[2023-02-28 21:44] LABS: Erythrocyte Sedimentation Rate 46 MM/HR (0-20)
[2023-03-01] MEDS: AMPICILLIN 2,000 MG in SODIUM CHLORIDE 0.9% 100 ML 200 MG IV ×4 (00:07→17:39)
[2023-03-01 00:09] VITALS: BP 129/79; PULSE 92; RESP 21; O2SAT 100
[2023-03-01 00:30] VITALS: PULSE 92; RESP 17; O2SAT 99
[2023-03-01 00:49] LABS: Adenovirus Not Detected (Not Detect); B. parapertussis Not Detected (Not Detecte); Bordetella pertussis Not Detected (Not Detecte); Chlamydophila pneumoniae Not Detected (Not Detect); Coronavirus 229E Not Detected (Not Detect); Coronavirus HKU1 Not Detected (Not Detect); Coronavirus NL 63 Not Detected (Not Detect); Coronavirus OC43 Not Detected (Not Detect); Human Metapneumovirus Not Detected (Not Detect); Human Rhinovirus/Enterovirus Not Detected (Not Detect); Influenza A Not Detected (Not Detect); Influenza B Not Detected (Not Detect); Mycoplasma pneumoniae Not Detected (Not Detect); Parainfluenza Virus 1 Not Detected (Not Detect); Parainfluenza Virus 2 Not Detected (Not Detect); Parainfluenza Virus 3 Not Detected (Not Detect); Parainfluenza Virus 4 Not Detected (Not Detect); Respiratory Syncytial Virus Not Detected (Not Detect); SARS- CoV-2 Not Detected (Not Detecte)
[2023-03-01] MEDS: GENTAMICIN 350 MG in SODIUM CHLORIDE 0.9% 100 ML 108.75 MG IV (00:59)
[2023-03-01 01:00] VITALS: BP 121/75; PULSE 93; RESP 20; O2SAT 99
[2023-03-01 01:53] VITALS: BP 135/85; PULSE 114; RESP 20; TEMP 37.4; O2SAT 99
--- NOTE | 2023-03-01 01:53 | DI.ECHO.S_ITS ---
[facility]---------+ [facility] +---------+ : : [address] : : : : [id number] : : : : Phone: [phone]+ Echocardiogram Report + + :Name: JANETTE DAVIDSON Study Date: 03/01/2023 Height: 65 in : :[facility] ReadingLocation: Weight: 191 lb : : Gender: Female BSA: 1.9 m2 : :: 1995 Age: 27 yrs BP: 135/85 mmHg: :Reason For Study: SPLENIC INFARCTS, ENDOCARDITIS? : :Ordering Physician: EMMY, : :BRIANNE Performed By: Jaida Zuniga : :Referring: BRIANNE BOOTH : + + Interpretation Summary The left ventricle is normal in size and wall thickness. Left ventricular systolic function appears normal without focal wall motion abnormalities. The ejection fraction is estimated to be 55-60%. Diastolic parameters suggest probable normal left ventricular diastolic function and normal filling pressures. The right ventricle is normal in size and function. The right ventricular systolic pressure is estimated to be at least 22 mmHg based on an estimated right atrial pressure of 3 mm Hg. The left atrial size is normal. Right atrial size is normal. There is mild tricuspid regurgitation. There is no other significant valvular heart disease. The aortic root is normal size. No obvious endocarditis is visualized. Procedure: A two-dimensional transthoracic echocardiogram with color flow and Doppler was performed. The study quality was technically adequate. There is no prior echocardiogram noted for this patient. The patient was in sinus rhythm with heart rates between 68-82 bpm during the exam. Left Ventricle: The left ventricle is normal in size and wall thickness. Left ventricular systolic function appears normal without focal wall motion abnormalities. The ejection fraction is estimated to be 55-60%. Diastolic parameters suggest probable normal left ventricular diastolic function and normal filling pressures. Right Ventricle: The right ventricle is normal in size and function. Atria: The left atrial size is normal. Right atrial size is normal. There is no Doppler evidence for an interatrial shunt. Mitral Valve: The mitral valve is normal in structure and function. There is no mitral regurgitation noted. Aortic Valve: The aortic valve is trileaflet. The aortic valve opens well. There is no aortic valve stenosis. No aortic regurgitation is present. Tricuspid Valve: The tricuspid valve is normal in structure and function. There is mild tricuspid regurgitation. The right ventricular systolic pressure is estimated to be at least 22 mmHg based on an estimated right atrial pressure of 3 mm Hg. Pulmonic Valve: The pulmonic valve leaflets are thin and pliable; valve motion is normal. There is no pulmonic valvular regurgitation. There is no other significant valvular heart disease. Great Vessels: The aortic root is normal size. The dimensions of the ascending aorta are normal. The IVC is of normal diameter and collapses greater than 50% with a sniff. This suggests a low right atrial pressure of 3 mm Hg. Pericardium/ Pleura There is no pericardial effusion. There is no pleural effusion. MMode/2D Measurements & Calculations LVIDd: 5.0 cm LVOT diam: 2.0 cm LVIDs: 3.0 cm Ao root diam: 2.5 cm FS: 38.8 % asc Aorta Diam: 2.7 cm EPSS: 0.46 cm Ao Arch Diam (Prox Trans): 2.2 cm IVSd: 0.65 cm LVPWd: 0.69 cm LV rodriguez. diameter/BSA (cm/m^2): 2.6 LV sys. diameter/BSA (cm/m^2): 1.6 LA A2 area: 18.2 cm2 RA long axis: 5.1 cm LA A4 area: 14.5 cm2 RA area: 14.3 cm2 LA length (vol): 4.8 cm RA vol: 33.7 ml LA vol: 46.1 ml RA : 17.4 ml/m2 LA vol index: 23.8 ml/m2 IVC diam: 1.5 cm RVD1 (basal): 3.2 cm TAPSE: 1.6 cm Doppler Measurements & Calculations Ao V2 max: 144.7 cm/sec LVOT Max Marquise: 124.1 cm/sec Ao V2 mean: 103.1 cm/sec LV V1 max P.2 mmHg Ao max P.4 mmHg LV V1 VTI: 23.5 cm Ao mean P.7 mmHg VIVIANA(I,D): 2.4 cm2 Ao V2 VTI: 30.2 cm VIVIANA(V,D): 2.7 cm2 sev ratio: 0.78 VIVIANA indexed to BSA (cm^2/m^2): 1.3 MV E max marquise: 81.4 cm/sec TR max marquise: 214.9 cm/sec MV A max marquise: 37.3 cm/sec TR max P.5 mmHg MV E/A: 2.2 PA V2 max: 82.5 cm/sec Med Peak E' Marquise: 11.4 cm/sec PA V2 mean: 61.8 cm/sec E/E' med: 7.2 PA mean P.7 mmHg Lat Peak E' Marquise: 16.7 cm/sec PA pr(Accel): 31.0 mmHg E/E' lat: 4.9 E/e' average: 6.0 MV dec time: 0.20 sec SV(LVOT): 73.7 ml Reading Physician:02:44 PM
[2023-03-01 01:56] VITALS: BMI 31.8
[2023-03-01] MEDS: ACETAMINOPHEN 325 MG TABLET 650 MG PO (02:22)
[2023-03-01] MEDS: IBUPROFEN 600 MG TABLET PO ×2 (06:18→13:11)
[2023-03-01] MEDS: ENOXAPARIN 40 MG/0.4 ML SYRINGE SUBCUT (09:20)
[2023-03-01 10:12] VITALS: BP 113/68; PULSE 87; RESP 18; TEMP 36.6; O2SAT 98
[2023-03-01 10:23] LABS: Hematocrit 29.3 % (36-46); Mean Corpuscular Hemoglobin 28.4 PG (26-34); Mean Corpuscular Volume 83.6 fL (80-100); Platelet Count 207 X10^3/uL (150-400); Red Blood Cell Count 3.51 X10^6/uL (4.0-5.2); Red Cell Distribution Width 15.1 % (11.6-14.8); White Blood Cell Count 6.8 X10^3/uL (4.5-11.0)
[2023-03-01 10:24] LABS: Add Manual Diff / Slide Review YES
--- NOTE | 2023-03-01 10:36 | PM.HP.1 ---
History of Present Illness History of Present Illness Date Patient Seen: 03/01/23 Chief complaint: Fever, think C-setion incision may be infected Narrative: Pt is a 27yo POD#21 s/p primary for LGA baby, complicated by gestational HTN, who presented with fever. The pt reports having a fever that started on 02/27. It reached a Tmax of 104F at home. She has been having chills and hot flashes. She has mild lower abdominal pain, but doesn't feel this is out of proportion to what she expects after a . She denies any dysuria, change is bowel movements, SOB, cough, chest pain, diffuse abdominal pain, lower extremity swelling, breast tenderness or pain, abnormal vaginal discharge. Her lochia has been decreasing appropriately. The pt is formula feeding her baby. 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 ) special chace needs: No travel history: over 6 months ago seatbelt use: always water heater temp set < 120 deg: Yes working smoke detector in home: Yes fire extinguisher in home: Yes carbon monox detector in home: Yes firearms in home: No do you feel safe at home: Yes Smoking Status: Former smoker Tobacco: How many years used: 2 second hand exposure: No alcohol intake: current substance use type: does not use during the past year weight has: increased > 10 lbs well-balanced diet: rarely or never daily servings fruits/ve-1 Type(s) of exercise: walking, regular exercise and weight lifting frequency: 3-4 times per week Meds Home Medications and Allergies Home Medications Medication Instructions Recorded Confirmed Type prenat.vits,sherry,xmo-[id number] 1 tab PO DAILY 07/08/22 02/16/23 History ibuprofen 600 mg tablet 600 mg PO Q6H #30 tabs 02/10/23 02/16/23 Rx Allergies Allergy/AdvReac Type Severity Reaction Status Date / Time No Known Drug Allergies Allergy Verified 02/16/23 14:51 Exam Vital Signs (past 8 hours): - 03/01/23 10:12 Temperature 97.8 F Pulse Rate 87 Respiratory Rate 18 Blood Pressure 113/68 Pulse Oximetry 98 Oxygen Flow Rate 0 Oxygen Delivery Method Room Air Oxygen Flow Rate 0 Narrative Exam Narrative: Gen: NAD, sitting comfortably in bed, feels sweaty to touch Neck: no LAD CV: RRR, no murmurs Resp: clear to auscultation bilaterally Abd: soft, nondistended, normoactive bowel sounds, tender to palpation RLQ and suprapubic region without rebound/guarding/rigidity Ext: no edema Neuro: no gross deficits Objective Labs 03/01/23 10:07 03/01/23 10:07 Labs: Laboratory Results - last 24 hr 02/28/23 02/28/23 02/28/23 19:08 19:18 19:18 WBC RBC Hgb Hct MCV MCH MCHC RDW Plt Count Neut % (Auto) Lymph % (Auto) [place] % (Auto) Eos % (Auto) Baso % (Auto) Neut # (Auto) Lymph # (Auto) [place] # (Auto) Eos # (Auto) Baso # (Auto) ESR PT INR APTT Sodium Potassium Chloride Carbon Dioxide BUN Creatinine Estimated GFR BUN/Creatinine Ratio Glucose Lactate Calcium Total Bilirubin AST ALT Alkaline Phosphatase C-Reactive Protein Total Protein Albumin Globulin Albumin/Globulin Ratio Lipase Procalcitonin Urine Color Yellow Urine Appearance Clear Urine pH 6.0 Ur Specific [place] <=1.005 Urine Protein Negative Urine Glucose (UA) Negative Urine Ketones Negative Urine Occult Blood 1+ H Urine Nitrate Negative Urine Bilirubin Negative Urine Urobilinogen 0.2 Ur Leukocyte Esterase Trace H Urine RBC None seen Urine WBC 1-5/hpf Ur Squamous Epith Cells 0-1 /hpf Urine Bacteria Occasional (0-1) Ur Culture Indicated? Specimen cultured Chlamy pneumoniae PCR Not detected Adenovirus (PCR) Not detected B. pertussis DNA (PCR) Not detected B.parapertussis DNA PCR Not detected Coronavirus OC43 (PCR) Not detected Coronavirus HKU1 (PCR) Not detected Coronavirus 229E (PCR) Not detected SARS-CoV-2 (PCR) Negative Not detected Coronavirus NL63 (PCR) Not detected Human Metapneumovir PCR Not detected Influenza A (RT-PCR) Flu a negative Influenza Type A (PCR) Not detected Influenza B (RT-PCR) Flu b negative Influenza Type B (PCR) Not detected M. pneumoniae (PCR) Not detected Parainfluenza 1 (PCR) Not detected Parainfluenza 2 (PCR) Not detected Parainfluenza 3 (PCR) Not detected Parainfluenza 4 (PCR) Not detected RSV (PCR) Negative Not detected Entero/Rhino (PCR) Not detected 02/28/23 02/28/23 02/28/23 19:47 19:47 19:47 WBC 8.6 RBC 4.17 Hgb 11.9 L Hct 35.1 L MCV 84.1 MCH 28.6 MCHC 34.0 RDW 15.3 H Plt Count 291 Neut % (Auto) 57.9 Lymph % (Auto) 30.7 [place] % (Auto) 9.1 Eos % (Auto) 1.6 L Baso % (Auto) 0.7 Neut # (Auto) 5000 Lymph # (Auto) 2600 [place] # (Auto) 800 Eos # (Auto) 100 Baso # (Auto) 100 ESR PT 14.2 H INR 1.2 APTT 32 Sodium 141 Potassium 4.1 Chloride 103 Carbon Dioxide 26 BUN 7 Creatinine 1.02 Estimated GFR > 60 BUN/Creatinine Ratio 6.9 Glucose 103 H Lactate Calcium 9.0 Total Bilirubin 0.5 AST 41 H ALT 32 Alkaline Phosphatase 98 C-Reactive Protein Total Protein 8.0 Albumin 4.5 Globulin 3.5 Albumin/Globulin Ratio 1.3 Lipase 110 Procalcitonin 0.17 Urine Color Urine Appearance Urine pH Ur Specific [place] Urine Protein Urine Glucose (UA) Urine Ketones Urine Occult Blood Urine Nitrate Urine Bilirubin Urine Urobilinogen Ur Leukocyte Esterase Urine RBC Urine WBC Ur Squamous Epith Cells Urine Bacteria Ur Culture Indicated? Chlamy pneumoniae PCR Adenovirus (PCR) B. pertussis DNA (PCR) B.parapertussis DNA PCR Coronavirus OC43 (PCR) Coronavirus HKU1 (PCR) Coronavirus 229E (PCR) SARS-CoV-2 (PCR) Coronavirus NL63 (PCR) Human Metapneumovir PCR Influenza A (RT-PCR) Influenza Type A (PCR) Influenza B (RT-PCR) Influenza Type B (PCR) M. pneumoniae (PCR) Parainfluenza 1 (PCR) Parainfluenza 2 (PCR) Parainfluenza 3 (PCR) Parainfluenza 4 (PCR) RSV (PCR) Entero/Rhino (PCR) 02/28/23 02/28/23 02/28/23 19:47 19:47 19:47 WBC RBC Hgb Hct MCV MCH MCHC RDW Plt Count Neut % (Auto) Lymph % (Auto) [place] % (Auto) Eos % (Auto) Baso % (Auto) Neut # (Auto) Lymph # (Auto) [place] # (Auto) Eos # (Auto) Baso # (Auto) ESR 46 H PT INR APTT Sodium Potassium Chloride Carbon Dioxide BUN Creatinine Estimated GFR BUN/Creatinine Ratio Glucose Lactate 1.2 Calcium Total Bilirubin AST ALT Alkaline Phosphatase C-Reactive Protein 3.2 H Total Protein Albumin Globulin Albumin/Globulin Ratio Lipase Procalcitonin Urine Color Urine Appearance Urine pH Ur Specific [place] Urine Protein Urine Glucose (UA) Urine Ketones Urine Occult Blood Urine Nitrate Urine Bilirubin Urine Urobilinogen Ur Leukocyte Esterase Urine RBC Urine WBC Ur Squamous Epith Cells Urine Bacteria Ur Culture Indicated? Chlamy pneumoniae PCR Adenovirus (PCR) B. pertussis DNA (PCR) B.parapertussis DNA PCR Coronavirus OC43 (PCR) Coronavirus HKU1 (PCR) Coronavirus 229E (PCR) SARS-CoV-2 (PCR) Coronavirus NL63 (PCR) Human Metapneumovir PCR Influenza A (RT-PCR) Influenza Type A (PCR) Influenza B (RT-PCR) Influenza Type B (PCR) M. pneumoniae (PCR) Parainfluenza 1 (PCR) Parainfluenza 2 (PCR) Parainfluenza 3 (PCR) Parainfluenza 4 (PCR) RSV (PCR) Entero/Rhino (PCR) 03/01/23 10:07 WBC 6.8 RBC 3.51 L Hgb 10.0 L Hct 29.3 L MCV 83.6 MCH 28.4 MCHC 34.0 RDW 15.1 H Plt Count 207 Neut % (Auto) Not Reportable Lymph % (Auto) Not Reportable [place] % (Auto) Not Reportable Eos % (Auto) Not Reportable Baso % (Auto) Not Reportable Neut # (Auto) Lymph # (Auto) Not Reportable [place] # (Auto) Not Reportable Eos # (Auto) Baso # (Auto) Not Reportable ESR PT INR APTT Sodium Potassium Chloride Carbon Dioxide BUN Creatinine Estimated GFR BUN/Creatinine Ratio Glucose Lactate Calcium Total Bilirubin AST ALT Alkaline Phosphatase C-Reactive Protein Total Protein Albumin Globulin Albumin/Globulin Ratio Lipase Procalcitonin Urine Color Urine Appearance Urine pH Ur Specific [place] Urine Protein Urine Glucose (UA) Urine Ketones Urine Occult Blood Urine Nitrate Urine Bilirubin Urine Urobilinogen Ur Leukocyte Esterase Urine RBC Urine WBC Ur Squamous Epith Cells Urine Bacteria Ur Culture Indicated? Chlamy pneumoniae PCR Adenovirus (PCR) B. pertussis DNA (PCR) B.parapertussis DNA PCR Coronavirus OC43 (PCR) Coronavirus HKU1 (PCR) Coronavirus 229E (PCR) SARS-CoV-2 (PCR) Coronavirus NL63 (PCR) Human Metapneumovir PCR Influenza A (RT-PCR) Influenza Type A (PCR) Influenza B (RT-PCR) Influenza Type B (PCR) M. pneumoniae (PCR) Parainfluenza 1 (PCR) Parainfluenza 2 (PCR) Parainfluenza 3 (PCR) Parainfluenza 4 (PCR) RSV (PCR) Entero/Rhino (PCR) Assessment & Plan Assessment & Plan narrative: Pt is a 27yo POD#21 s/p primary for LGA baby, complicated by gestational HTN, who presented with fever, found to have multiple splenic infarcts on CT of abdomen. 1) Fever: No evidence of UTI. Normal lung exam and imaging. No evidence of mastitis, and pt is not . Incision site does not appear infected. Negative viral respiratory panel. No evidence of PE on CTA lung. No new medications. Pt does have uterine tenderness on exam, concerning for endometritis. - Continue Ampicillin, Gentamicin, plan to continue until 24hrs afebrile - Monitor closely for fever recurrence - F/U blood and urine cultures 2) Splenic infarcts: Question acuity. Unclear etiology at this point. ER physician spoke with Surgery, who did not have any additional recommendations at this time. [facility] also consulted from the ED, who did not feel infarcts are related to . - Echo ordered to evaluate for vegetations. Assuming negative, should be safe for outpatient f/u FEN: General diet Code: Full DVT ppx: Lovenox Dispo: Pending afebrile for 24hrs, echo completed. Potential discharge later today. Quality VTE Deep Vein Thrombosis/Pulmonary Embolism Present on Admission: No
[2023-03-01 10:47] LABS: Neutrophils Absolute Manual 2516 /uL (3000-5900); Reactive Lymphocytes 1+; Total Cells Counted 100
[2023-03-01 10:48] LABS: Platelet Estimate Adequate on smear; RBC Morphology Normal Morphology
[2023-03-01 10:53] LABS: Alanine Aminotransferase 25 IU/L (<35); Albumin 3.6 g/dL (3.5-5.0); Albumin Globulin Ratio 1.2 (1.0-2.8); Alkaline Phosphatase 73 U/L (38-126); Aspartate Aminotransferase 31 IU/L (14-36); BUN Creatinine Ratio 6.9 (6-22); Bilirubin Total 0.4 mg/dL (0.2-1.3); Blood Urea Nitrogen 6 mg/dL (7-17); Calcium 8.5 mg/dL (8.4-10.2); Carbon Dioxide 27 mmol/L (22-32); Chloride 106 mmol/L (98-107); Estimated Glomerular Filt Rate > 60 mL/min (>60); Glucose 107 mg/dL (70-100); HEMOLYSIS < 15 (0-50); Sodium 140 mmol/L (137-145); Total Protein 6.6 g/dL (6.3-8.2)
--- NOTE | 2023-03-01 10:59 | CM.DANOTE ---
DCP: Case received, EMR reviewed and met with patient. Partner, Siddharth, was also at bedside. Completed DCP assessment based upon information currently available. Patient is a 27 year old female who admitted yesterday evening to the care of the hospitalist team. PCP: [facility]. Payer: confirmed: [employer] Menezes. Patient came to the hospital via private vehicle secondary to concerns that she s having an infection from her . Patient gave on 02-08. Patient had been complaining of right lower quadrant pain. Patient was admitted for splenomegaly with small spenic infarts, which was noted on CT scan. Provider also mentioned endometritis. Met with patient in her room. She was feeding her infant, Godfrey, via bottle. Her partner was at bedside. Patient is alert and oriented, and resides in [place]. 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 Confirmed that she does get her medical care at [facility], but not sure of the name of her primary care provider. P: DCP to continue to follow. Plan is home when deemed medically stable. Bharati Lozano RN/Steam Tender Discharge Planning/Care Management CM Discharge Assessment Start: 03/01/23 10:55 Freq: Status: Active Protocol: Document 03/01/23 10:57 (Rec: 03/01/23 10:59 [id number]) Discharge Planning Assessment Assigned [employer] Bharati Lozano RN/Steam Tender Advance Directives? No History Provided By Patient,Medical Record Household Members significant other,none Type of transporation used prior to Drives own vehicle admit Independent with ADL's Yes Is patient alert and oriented? Yes Caregiver for Another Yes: Her baby Barriers to Discharge No Discharge Plan Home Transportation Arrangement Partner, Siddharth. Referrals Initiated None needed Whiteboard Updated in Patient Room with Yes name and ext. # of [employer] Review Status In Process Next Review Type Continued Stay Review
[2023-03-01 18:36] VITALS: BP 116/74; PULSE 78; RESP 19; TEMP 36.5; O2SAT 99
--- NOTE | 2023-03-01 18:43 | PC.NURSE ---
Pt is A&OX4, VSS, on RA. She has remained afebrile throughout the day. She is independent in the room, and tolerated IV antibiotics well. MD notified of Echo completion and eagerness to discharge home. MD at bedside this evening evaluating patient and discussing plan of care. She is cleared for discharge home this evening with her spouse. She verbalizes understanding of discharge activity, medications, s/sx of worsening infection, as well as follow up plan. She is escorted with all of her belongings via w/ch to private vehicle with for discharge home this evening.
== END 2023-03-01 19:00 | disposition home or self-care (01) ==
LOC: ED 23:29 → AC 03-01
PROVIDERS: Admitting Provider Family Medicine; Emergency Provider Emergency Medicine; Referring Provider Emergency Medicine; Visit Provider Family Medicine
DX: R50.9 Fever, unspecified (principal); R10.31 Right lower quadrant pain; O88.23 Thromboembolism in the puerperium; Z20.822 Contact with and (suspected) exposure to COVID-19
CPT/HCPCS: 0241U; 36415; 71045; 71275; 74177; 80053; 81001; 81003; 83605; 83690; 84145; 85007; 85025; 85610; 85651; 85730; 86140; 87040; 87086; 87633; 93005; 93010; 93306; 96361; 96365; 96366; 96372; 99234; 99285; G0378; J0290; J1650; Q9967